=== PATIENT | male | born 1975 | race Caucasian/White ===

== ENCOUNTER 2023-04-25 22:28 | Inpatient (IN) ==
[2023-04-25 23:08] LABS: Basophils # (auto) 0.05 K/uL (0.00-0.20); Basophils % (auto) 0.7 %; Eosinophils # (auto) 0.12 K/uL (0.00-0.50); Eosinophils % (auto) 1.6 %; Hematocrit (blood only) 38.3 % (42.0-52.0); Hemoglobin 12.3 g/dl (14.0-18.0); Immature Granulocytes # (auto) 0.03 K/uL (0.01-0.20); Immature Granulocytes % (auto) 0.4 %; Lymphocytes # (auto) 1.53 K/uL (1.20-3.40); Lymphocytes % (auto) 20.2 %; Mean Corpuscular Hemoglobin 28.2 pg (25.0-34.0); Mean Corpuscular Hgb Conc 32.1 g/dL (32.0-36.0); Mean Corpuscular Volume 87.8 fL (80.0-100.0); Mean Platelet Volume 9.7 fL (9.4-12.4); Monocytes # (auto) 0.36 K/uL (0.11-0.59); Monocytes % (auto) 4.7 %; Neutrophils % (auto) 72.4 %; Platelet Count 427 K/uL (130-400); RDW Coefficient of Variation 13.2 % (11.5-14.5); RDW Standard Deviation 42.6 fL (36.4-46.3); Red Blood Count 4.36 M/uL (4.70-6.10); White Blood Count 7.59 K/ul (4.8-10.8)
[2023-04-25 23:26] LABS: Albumin Globulin Ratio 0.7 (0.9-2); Albumin Level 3.3 gm/dl (3.4-5.0); BUN Creatinine Ratio 12.4 (10-20); Bilirubin,Total 0.3 mg/dl (0.2-1.0); Creatinine Clr Calc Pharmacy 23.8 ml/min; Est GFR (African American) 20.2 ml/min; Est GFR (Non-African American) 17.4 ml/min; Globulin 4.9 gm/dl (2.5-4.0); Magnesium 1.6 mg/dl (1.7-2.4); Potassium 4.1 mmol/L (3.5-5.1); Total Protein 8.2 gm/dl (6.0-8.3)
[2023-04-25] MEDS ORDERED: VANCOMYCIN HCL 1,750 MG in SODIUM CHLORIDE 0.9% 500 ML IV ONE (23:28)
[2023-04-25] MEDS ORDERED: cefTRIAXone SODIUM 2,000 MG/50 ML BAG IV STA (23:28)
[2023-04-25] MEDS ORDERED: VANCOMYCIN CONSULT ACTIVE PRN (23:28)
--- NOTE | 2023-04-25 23:28 | Emergency Department Note ---
Impression & Plan Gangrene of toe of left foot, HEATHER (acute kidney injury), Hypomagnesemia ED Provider Note NAME: VARUN DARBY AGE: 47 SEX: M : 1975 ARRIVES VIA: Walk-In INFORMANT: Patient ED PROVIDER(S): Jasper Blank DO CHIEF COMPLAINT: Left first toe pain HPI: Patient is a 47-year-old male who presents to the ER for left first toe pain. He notes this has been present for several months as initially started as an ulcer and then became black and necrotic. Tonight while he was in the shower he noticed he bumped it and his toenail fell off up with some additional skin. He admits to severe pain. He denies any fevers. No cough or congestion. No chest pain or shortness of breath. No redness streaking up the leg. No other exacerbating or remitting factors. ADDITIONAL HISTORY OBTAINED: Per HPI Chronic Medical/Social Conditions Affecting Care: Per HPI PAST MEDICAL HISTORY:See Below PAST SURGICAL HISTORY:See Below FAMILY HISTORY:See Below SOCIAL HISTORY:See Below HOME MEDICATIONS:See Below ALLERGIES:See Below VITALS:See Below PHYSICAL EXAMINATION: GENERAL: Sitting up in bed, alert, well appearing, well nourished, no distress, non-toxic EYE EXAM: normal conjunctiva. OROPHARYNX: mucous membranes are moist LUNGS: Clear to auscultation. Normal chest wall mechanics HEART: no murmurs, S1 normal and S2 normal ABDOMEN: abdomen soft, non-tender, normo-active bowel sounds, no masses, no rebound or guarding. BACK: Back is symmetrical on inspection and there is no deformity, no midline tenderness, no CVA tenderness. SKIN: no rashes and no bruising UPPER EXTREMITIES: upper extremities are grossly normal. LOWER EXTREMITIES: Left first toe is necrotic and slightly fluctuant tracking down to the base where is a small amount of serosanguineous drainage. Surrounding erythema over the first MTP. NEURO EXAM: Normal sensorium, cranial nerves II-XII grossly intact, normal speech, no gross weakness of arms, no gross weakness of legs. MEDICAL DECISION MAKING: Patient is a 47-year-old diabetic who does not follow with a PCP who presents the ER for left first toe pain. IV was established blood work was obtained. Labs show no significant leukocytosis. Mild anemia at 12. INR unremarkable. BMP with creatinine of 3.8 with no old to compare to. LFTs were unremarkable as well as bilirubin. Magnesium low at 1.6. Troponin negative at 19. Pro-Gabe normal. UA was clean. On exam patient does appear to have gangrene of his left first toe. X-ray does not show any clear osteo-. Patient was covered with IV antibiotics and given IV morphine. Updated bedside discussed with the hospitalist Dr. Bronson for further evaluation management treatment. External Records Reviewed: None Consults/Care Managements Discussions: Per MDM Triage Nursing notes reviewed. Limited review of prior medical records performed Vital Signs: reviewed and remarkable for HTN Differential diagnosis: Cellulitis, abscess, MRSA infection, DVT, necrotizing fasciitis, dermatitis, drug eruption, allergic reaction, as well as other pathologies. ER treatment provided: See below Diagnostics interpreted by me include EKG and cardiac monitoring as listed below: -Cardiac Monitoring: An order was placed for continuous cardiac monitoring. The monitor shows a rate of 80 with sinus rhythm. -ECG: none -Laboratory studies:Interpreted by me as stated above in MDM and shown below. Imaging studies: Xrays: As interpreted by me: X-ray left first toe shows no clear osteo per my read Procedures:none Critical Care: None Past Med/Surg History Social History Smoking Status: Current every day smoker Tobacco Type: Cigarettes Feels Safe at Home: Yes Allergies Allergies Allergy/AdvReac Type Severity Reaction Status Date / Time Iodinated Contrast Media AdvReac Mild SEVERE Verified 04/26/23 02:25 NAUSEA Home Meds Home Medications Medication Instructions Recorded Confirmed No Known Home Medications 04/26/23 04/26/23 Results & Data (ED) Vital Signs Vital Signs - 24 hr 04/25/23 22:38 04/26/23 00:11 04/26/23 00:13 Temperature 36.7 C Temperature Source Temporal Artery Scan Pulse Rate 95 H 82 82 Pulse Rate [Apical] Pulse Rhythm Regular Pulse Rhythm [Apical] Pulse Strength [Apical] Respiratory Rate 18 18 Respiratory Effort / Characteristics Respiratory Depth Normal Respiratory Pattern Blood Pressure 194/111 H Blood Pressure [Left Arm] Blood Pressure Mean 138 Blood Pressure Mean [Left Arm] Blood Pressure Position [Left Arm] Pulse Oximetry 99 100 Oxygen Delivery Method Room Air Room Air Sepsis Recent Fever Within 48 Hours No Sepsis New/Unexplained Change in Mental Status No Sepsis Action Taken by Nursing No Action Required 04/26/23 01:00 Temperature Temperature Source Pulse Rate Pulse Rate [Apical] 78 Pulse Rhythm Pulse Rhythm [Apical] Regular Pulse Strength [Apical] Normal Respiratory Rate 18 Respiratory Effort / Characteristics Non-Labored Spontaneous Respiratory Depth Normal Respiratory Pattern Regular Blood Pressure Blood Pressure [Left Arm] 167/96 H Blood Pressure Mean Blood Pressure Mean [Left Arm] 119 Blood Pressure Position [Left Arm] Semi-fowlers Pulse Oximetry 99 Oxygen Delivery Method Room Air Sepsis Recent Fever Within 48 Hours Sepsis New/Unexplained Change in Mental Status Sepsis Action Taken by Nursing Laboratory Data 04/25/23 22:50 04/25/23 22:50 Lab Results 04/25/23 04/25/23 04/26/23 Range/Units 22:50 23:58 00:05 WBC 7.59 (4.8-10.8) K/ul RBC 4.36 L (4.70-6.10) M/uL Hgb 12.3 L (14.0-18.0) g/dl Hct 38.3 L (42.0-52.0) % MCV 87.8 (80.0-100.0) fL MCH 28.2 (25.0-34.0) pg MCHC 32.1 (32.0-36.0) g/dL RDW Std Deviation 42.6 (36.4-46.3) fL RDW Coeff of Duran 13.2 (11.5-14.5) % Plt Count 427 H (130-400) K/uL MPV 9.7 (9.4-12.4) fL Immature Gran % (Auto) 0.4 % Neut % (Auto) 72.4 % Lymph % (Auto) 20.2 % Allen % (Auto) 4.7 % Eos % (Auto) 1.6 % Baso % (Auto) 0.7 % Neut # (Auto) 5.50 (1.40-6.50) K/uL Lymph # (Auto) 1.53 (1.20-3.40) K/uL Allen # (Auto) 0.36 (0.11-0.59) K/uL Eos # (Auto) 0.12 (0.00-0.50) K/uL Baso # (Auto) 0.05 (0.00-0.20) K/uL Immature Gran # (Auto) 0.03 (0.01-0.20) K/uL PT 11.4 (9.0-12.0) Seconds INR 1.0 (0.9-1.1) APTT 27.1 (21.0-31.0) Seconds PTT Ratio 1.0 Sodium 137 (136-145) mmol/L Potassium 4.1 (3.5-5.1) mmol/L Chloride 107 (98-107) mmol/L Carbon Dioxide 21 (21-32) mmol/L Anion Gap 9 (3-11) BUN 48 H (6-23) mg/dl Creatinine 3.88 H (0.6-1.4) mg/dl Est Cr Clr Drug Dosing 23.8 ml/min Est GFR ( Amer) 20.2 ml/min Est GFR (Non-Af Amer) 17.4 ml/min BUN/Creatinine Ratio 12.4 (10-20) Glucose 95 (70-99(Fasting)) mg/dl Lactate 1.9 (0.4-2.0) mmol/L Calcium 9.0 (8.6-10.3) mg/dl Magnesium 1.6 L (1.7-2.4) mg/dl Total Bilirubin 0.3 (0.2-1.0) mg/dl AST 26 (13-39) U/L ALT 20 (7-52) U/L Alkaline Phosphatase 143 H (34-104) U/L Troponin I High Sens 19.5 (0-20) pg/ml Total Protein 8.2 (6.0-8.3) gm/dl Albumin 3.3 L (3.4-5.0) gm/dl Globulin 4.9 H (2.5-4.0) gm/dl Albumin/Globulin Ratio 0.7 L (0.9-2) Procalcitonin 0.30 (0-0.5) ng/ml Urine Color Yellow Urine Appearance Clear (Clear) Urine pH 5.0 (4.5-7.5) Ur Specific [place] 1.015 (1.000-1.030) Urine Protein 3+ H (Negative) Urine Glucose (UA) 1+ H (Negative) Urine Ketones Negative (Negative) Urine Blood 1+ H (Negative) Urine Nitrite Negative (Negative) Urine Bilirubin Negative (Negative) Urine Urobilinogen Negative (Negative) Ur Leukocyte Esterase Negative (Negative) Urine WBC (Auto) 1-5 (0-5) /hpf Urine RBC (Auto) 0-4 (0-4) /hpf U Hyaline Cast (Auto) 1-5 (0-5) /lpf U Epithel Cells (Auto) 0-5 (0-5) /lpf Urine Bacteria (Auto) Negative (Negative) Administered Medications Discontinued Medications Hydromorphone HCl (Hydromorphone Inj 1 Mg/Ml Syringe) 1 mg IV NOW STA Stop: 04/26/23 02:18 Last Admin: 04/26/23 02:30 Dose: 1 mg Documented By: CLAU Ceftriaxone Sodium (Rocephin) 2,000 mg in 50 mls @ 100 mls/hr IV NOW STA Stop: 04/25/23 23:57 Last Infusion: 04/26/23 00:45 Dose: Infused Documented By: Admin: 04/26/23 00:16 Dose: 100 mls/hr Documented By: CLAU Vancomycin HCl 1,750 mg/ (Sodium Chloride) 535 mls @ 200 mls/hr IV NOW ONE Stop: 04/26/23 02:08 Last Admin: 04/26/23 00:45 Dose: 200 mls/hr Documented By: CLAU Sodium Chloride (Nss) 1,000 mls @ 999 mls/hr IV .Q1H1M ONE Stop: 04/26/23 01:02 Last Infusion: 04/26/23 01:25 Dose: Infused Documented By: Admin: 04/26/23 00:15 Dose: 999 mls/hr Documented By: CLAU Morphine Sulfate (Morphine Sulfate 4 Mg/Ml 1 Ml Carp\Vial) 4 mg IV NOW STA Stop: 04/26/23 00:23 Last Admin: 04/26/23 00:25 Dose: 4 mg Documented By: CLAU Discharge Plan Visit Data Chief Complaint: Toe Injury/Pain Stated Complaint: LT TOE PAIN, INFECTION ED Provider: Jasper Blank Discharge Problem: Gangrene of toe of left foot, HEATHER (acute kidney injury), Hypomagnesemia Forms Stand Alone Forms: Doctor on Demand Prescriptions Prescriptions: No Action No Known Home Medications Referrals Referrals: PCP,NO [Primary Care Provider] -
[2023-04-25 23:32] LABS: Troponin I High Sensitivity 19.5 pg/ml (0-20)
[2023-04-25 23:37] LABS: Partial Thromboplastin Time 27.1 Seconds (21.0-31.0); Prothrombin Time 11.4 Seconds (9.0-12.0)
[2023-04-26] MEDS ORDERED: SODIUM CHLORIDE 0.9% 1,000 ML IV ONE (00:02)
[2023-04-26] MEDS ORDERED: MoRPHine SULFATE 4 MG/ML 1 ML CARP\\VIAL IV STA (00:22)
[2023-04-26 01:24] LABS: Appearance Urine Clear (Clear); Bacteria Urine Automated Negative (Negative); Bilirubin Urine Negative (Negative); Blood Urine 1+ (Negative); Color Urine Yellow; Epithelial Cell Urine Auto 0-5 /lpf (0-5); Glucose Urine UA 1+ (Negative); Ketones Urine Negative (Negative); Leukocyte Esterase Urine Negative (Negative); Nitrite Urine Negative (Negative); Protein Urine 3+ (Negative); RBC Urine Automated 0-4 /hpf (0-4); Specific Gravity Urine 1.015 (1.000-1.030); Urobilinogen Urine Negative (Negative)
--- NOTE | 2023-04-26 01:53 | History & Physical Report ---
Date of Service April 26, 2023 Assessment & Plan (1) Gangrene of toe of left foot: Plan: 47-year-old male past med significant for high blood pressure, diabetes, high cholesterol as per patient and not taking medication since 2019 comes because of left big toe infection which seems gangrenous. Patient says 2 months ago the infection started left big toe with callus and progressive got worse. Gangrene of toe of left foot States callus of left big toe got infected since last 2 months and progressively got worse Not seeing doctors for long time Placed on IV Vanco and Zosyn IV fluids We will follow arterial ultrasound of lower extremities IV Dilaudid as needed N.p.o. Consult Ortho Hypertensive urgency States has history of hypertension and not take any medications We will place him on IV labetalol as needed for now We will monitor HEATHER versus chronic kidney disease Creatinine of 3.8 Avoid nephrotoxic agents Getting gentle fluids Nephrology consult Diabetes Currently not on medications Insulin sliding scale We will follow blood sugars and HbA1c levels History of hyperlipidemia We will follow lipid profile DVT prophylaxis SCDs for now Disposition Med/telemetry Full code History of Present Illness Chief Complaint: Left big toe infection gangrenous Primary Care Provider: NO PCP 47-year-old male past med history significant for high blood pressure, diabetes, high cholesterol as per patient and not taking medication since 2019 comes because of left big toe infection which seems gangrenous. Patient says 2 months ago the infection started in left big toe with callus and progressive got worse. Is in a lot of pain. But he states he deals with lot of pain from his back p ain and his neuropathy is in his lower extremity. Patient states he used to take lot of pain medications before for his back pain and used to be on a lot of pills but he stopped going to doctors from 2019 and stopped taking all the medications. Denies any fevers. Not able to ambulate because of pain for last few days. Denies any headache. Vision is okay. No runny nose or sore throat. No difficulty swallowing. No nausea or vomiting. No chest pain or shortness of breath. No abdominal pain. Normal bowel and bladder movements. Denies any bloody stools or hematuria. Past med history. As mentioned above Past surgical history. Facial reconstruction surgery, dental surgery and back surgery Social history. Smokes 1 pack a day for for about 30 years. Stopped drinking alcohol 2 years ago. Family history. Mother had diabetes. Paternal grandfather heart disease and colon cancer. Brother had esophageal cancer Allergies Allergy/AdvReac Type Severity Reaction Status Date / Time Iodinated Contrast Media AdvReac Mild SEVERE Verified 04/26/23 02:25 NAUSEA Home Medications Medication Instructions Recorded Confirmed Type No Known Home Medications 04/26/23 04/26/23 History Past Med/Surg History Social History Smoking Status: Current every day smoker Tobacco Type: Cigarettes Feels Safe at Home: Yes Review of Systems Review of Systems: All systems reviewed & are unremarkable except as noted in HPI & below Physical Exam Physical Exam: General- Not in distress Head- atraumatic Eyes- PERRL. ENT- oropharynx clear Neck- supple, no JVD. Lungs- clear to auscultation no wheezing or crackles. Heart- regular rhythm; no murmur, no gallop. Abdomen- normal bowel sounds, soft, nontender, no distension. Extremities- Left Big toe gangrenous. Neuro- alert, oriented x 3; PERRL, no facial palsy; no dysarthria; moves extremities. Results & Data Results & Data Vital Signs (Past 12 Hours) Vital Signs Temp Pulse Pulse Resp BP BP Pulse Ox 04/26/23 01:00 78 18 167/96 H 99 04/26/23 00:13 82 18 100 04/26/23 00:11 82 04/25/23 22:38 36.7 C 95 H 18 194/111 H 99 O2 Del Method 04/26/23 01:00 Room Air 04/26/23 00:13 Room Air 04/26/23 00:11 04/25/23 22:38 Room Air Diagnostic Findings Laboratory Results WBC 7.59 K/ul (4.8-10.8) 04/25/23 22:50 RBC 4.36 M/uL (4.70-6.10) L 04/25/23 22:50 Hgb 12.3 g/dl (14.0-18.0) L 04/25/23 22:50 Hct 38.3 % (42.0-52.0) L 04/25/23 22:50 MCV 87.8 fL (80.0-100.0) 04/25/23 22:50 MCH 28.2 pg (25.0-34.0) 04/25/23 22:50 MCHC 32.1 g/dL (32.0-36.0) 04/25/23 22:50 RDW Std Deviation 42.6 fL (36.4-46.3) 04/25/23 22:50 RDW Coeff of Duran 13.2 % (11.5-14.5) 04/25/23 22:50 Plt Count 427 K/uL (130-400) H 04/25/23 22:50 MPV 9.7 fL (9.4-12.4) 04/25/23 22:50 Immature Gran % (Auto) 0.4 % 04/25/23 22:50 Neut % (Auto) 72.4 % 04/25/23 22:50 Lymph % (Auto) 20.2 % 04/25/23 22:50 Rowan % (Auto) 4.7 % 04/25/23 22:50 Eos % (Auto) 1.6 % 04/25/23 22:50 Baso % (Auto) 0.7 % 04/25/23 22:50 Neut # (Auto) 5.50 K/uL (1.40-6.50) 04/25/23 22:50 Lymph # (Auto) 1.53 K/uL (1.20-3.40) 04/25/23 22:50 Rowan # (Auto) 0.36 K/uL (0.11-0.59) 04/25/23 22:50 Eos # (Auto) 0.12 K/uL (0.00-0.50) 04/25/23 22:50 Baso # (Auto) 0.05 K/uL (0.00-0.20) 04/25/23 22:50 Immature Gran # (Auto) 0.03 K/uL (0.01-0.20) 04/25/23 22:50 PT 11.4 Seconds (9.0-12.0) 04/25/23 22:50 INR 1.0 (0.9-1.1) 04/25/23 22:50 APTT 27.1 Seconds (21.0-31.0) 04/25/23 22:50 PTT Ratio 1.0 04/25/23 22:50 Sodium 137 mmol/L (136-145) 04/25/23 22:50 Potassium 4.1 mmol/L (3.5-5.1) 04/25/23 22:50 Chloride 107 mmol/L (98-107) 04/25/23 22:50 Carbon Dioxide 21 mmol/L (21-32) 04/25/23 22:50 Anion Gap 9 (3-11) 04/25/23 22:50 BUN 48 mg/dl (6-23) H 04/25/23 22:50 Creatinine 3.88 mg/dl (0.6-1.4) H 04/25/23 22:50 Est Cr Clr Drug Dosing 23.8 ml/min 04/25/23 22:50 Est GFR ( Amer) 20.2 ml/min 04/25/23 22:50 Est GFR (Non-Af Amer) 17.4 ml/min 04/25/23 22:50 BUN/Creatinine Ratio 12.4 (10-20) 04/25/23 22:50 Glucose 95 mg/dl (70-99(Fasting)) 04/25/23 22:50 Lactate 1.9 mmol/L (0.4-2.0) 04/25/23 23:58 Calcium 9.0 mg/dl (8.6-10.3) 04/25/23 22:50 Magnesium 1.6 mg/dl (1.7-2.4) L 04/25/23 22:50 Total Bilirubin 0.3 mg/dl (0.2-1.0) 04/25/23 22:50 AST 26 U/L (13-39) 04/25/23 22:50 ALT 20 U/L (7-52) 04/25/23 22:50 Alkaline Phosphatase 143 U/L (34-104) H 04/25/23 22:50 Troponin I High Sens 19.5 pg/ml (0-20) 04/25/23 22:50 Total Protein 8.2 gm/dl (6.0-8.3) 04/25/23 22:50 Albumin 3.3 gm/dl (3.4-5.0) L 04/25/23 22:50 Globulin 4.9 gm/dl (2.5-4.0) H 04/25/23 22:50 Albumin/Globulin Ratio 0.7 (0.9-2) L 04/25/23 22:50 Procalcitonin 0.30 ng/ml (0-0.5) 04/25/23 22:50 Urine Color Yellow 04/26/23 00:05 Urine Appearance Clear (Clear) 04/26/23 00:05 Urine pH 5.0 (4.5-7.5) 04/26/23 00:05 Ur Specific [place] 1.015 (1.000-1.030) 04/26/23 00:05 Urine Protein 3+ (Negative) H 04/26/23 00:05 Urine Glucose (UA) 1+ (Negative) H 04/26/23 00:05 Urine Ketones Negative (Negative) 04/26/23 00:05 Urine Blood 1+ (Negative) H 04/26/23 00:05 Urine Nitrite Negative (Negative) 04/26/23 00:05 Urine Bilirubin Negative (Negative) 04/26/23 00:05 Urine Urobilinogen Negative (Negative) 04/26/23 00:05 Ur Leukocyte Esterase Negative (Negative) 04/26/23 00:05 Urine WBC (Auto) 1-5 /hpf (0-5) 04/26/23 00:05 Urine RBC (Auto) 0-4 /hpf (0-4) 04/26/23 00:05 U Hyaline Cast (Auto) 1-5 /lpf (0-5) 04/26/23 00:05 U Epithel Cells (Auto) 0-5 /lpf (0-5) 04/26/23 00:05 Urine Bacteria (Auto) Negative (Negative) 04/26/23 00:05 ECG Additional Comments: ECG. Normal sinus rhythm rate of 90. No significant change was found Code Status & VTE Plan VTE Prophylaxis Plan VTE Prophylaxis will be ordered: Yes
[2023-04-26] MEDS ORDERED: HYDROmorphone INJ 1 MG/ML SYRINGE IV STA ×2 (02:17→22:45)
[2023-04-26] MEDS ORDERED: NITROGLYCERIN SL 0.4 MG/TAB TAB SL PRN (03:52)
[2023-04-26] MEDS ORDERED: POLYETHYLENE (MIRALAX) 17 GM PACK PO PRN (03:52)
[2023-04-26] MEDS ORDERED: DEXTROSE 50% 50 ML SYRINGE IV PRN (03:52)
[2023-04-26] MEDS ORDERED: CARBOHYDRATES FOR HYPOGLYCEMIA PO PRN (03:52)
[2023-04-26] MEDS ORDERED: GLUCOSE 10 TAB/TUBE PO PRN (03:52)
[2023-04-26] MEDS ORDERED: LABETALOL HCL IV 5 MG/ML 20ML IV PRN ×2 (03:52→15:38)
[2023-04-26] MEDS ORDERED: GLUCAGON FOR INJ 1 MG VIAL SQ PRN (03:52)
[2023-04-26] MEDS ORDERED: GLUCOSE 40% GEL 15 GM TUBE PO PRN (03:52)
[2023-04-26] MEDS ORDERED: ACETAMINOPHEN 325 MG TAB PO PRN (03:52)
[2023-04-26] MEDS: SODIUM CHLORIDE 0.9% 1,000 ML IV SCH ×2 (04:23→20:09)
[2023-04-26 05:09] LABS: Basophils # (auto) 0.05 K/uL (0.00-0.20); Basophils % (auto) 0.7 %; Eosinophils # (auto) 0.15 K/uL (0.00-0.50); Eosinophils % (auto) 2.1 %; Hematocrit (blood only) 30.5 % (42.0-52.0); Immature Granulocytes # (auto) 0.03 K/uL (0.01-0.20); Immature Granulocytes % (auto) 0.4 %; Lymphocytes % (auto) 25.1 %; Mean Corpuscular Hemoglobin 28.2 pg (25.0-34.0); Mean Corpuscular Hgb Conc 32.8 g/dL (32.0-36.0); Mean Corpuscular Volume 86.2 fL (80.0-100.0); Mean Platelet Volume 9.6 fL (9.4-12.4); Monocytes # (auto) 0.44 K/uL (0.11-0.59); Monocytes % (auto) 6.1 %; Neutrophils # (auto) 4.69 K/uL (1.40-6.50); Neutrophils % (auto) 65.6 %; Platelet Count 308 K/uL (130-400); RDW Coefficient of Variation 13.1 % (11.5-14.5); RDW Standard Deviation 41.4 fL (36.4-46.3); Red Blood Count 3.54 M/uL (4.70-6.10); White Blood Count 7.16 K/ul (4.8-10.8)
[2023-04-26 05:19] LABS: BUN Creatinine Ratio 13.1 (10-20); Calcium 8.1 mg/dl (8.6-10.3); Chol HDL Ratio 7.1 (0-5); Creatinine Clr Calc Pharmacy 26.4 ml/min; Est GFR (African American) 22.9 ml/min; Est GFR (Non-African American) 19.8 ml/min; Magnesium 1.4 mg/dl (1.7-2.4); Potassium 3.8 mmol/L (3.5-5.1)
[2023-04-26] MEDS: INSULIN ASPART PER UNIT CHARGE SC SCH ×4 (06:24→23:43)
--- NOTE | 2023-04-26 06:51 | Ultrasound Report ---
US arterial duplex LE BI HISTORY: 47 years-old Male PVD. diabetic foot infection peripheral arterial disease with right lower extremity pain COMPARISON: None TECHNIQUE: Multiple real-time sonographic images of the bilateral lower arterial structures were obta ined assessing grayscale appearance, color and spectral flow FINDINGS: Right: Diffuse atherosclerotic plaque limits the study. No elevated peak systolic velocities to suggest high -grade stenosis. No arterial occlusion. Mostly triphasic waveforms throughout. LEFT: Diffuse atherosclerotic plaque limits the study. Elevated peak systolic velocities within the peronea l artery measuring up to 226 cm/s. Additional elevated peak systolic velocities in the posterior tibi al artery measure up to 338 cm/s and within the proximal peroneal artery measure up to 220 cm/s. Elev ated peak systolic velocities in the mid anterior tibial artery measure up to 466 cm/s. Monophasic wa veforms within the left lower leg with areas of spectral broadening. Blunted waveforms are seen most prominently within the mid anterior tibial artery. IMPRESSION: 1. No arterial occlusion identified. 2. Diffuse atherosclerosis with elevated peak systolic velocities and monophasic waveforms within the left lower leg compatible with multifocal areas of high-grade stenoses. 3. Mostly triphasic waveforms throughout the right lower extremity. ACT 112: Negative or not required by law. The above report was generated using voice recognition software. It may contain grammatical, syntax o r spelling errors. Electronically signed by: Amanuel Purvis M.D. 04/26/2023 6:49 AM
--- NOTE | 2023-04-26 06:55 | XRay Report ---
XR toe(s) LT min 2V HISTORY: 47 years-old Male osteo acute left foot pain with osteomyelitis COMPARISON: None TECHNIQUE: 3 views of the left foot FINDINGS: Diffuse soft tissue swelling. Soft tissue gas of the great toe with medial cutaneous ulcer, 1.6 cm. O sseous erosion with pathologic intra-articular fracturing is noted involving the medial base of the f irst distal phalanx without significant displacement. IMPRESSION: Soft tissue ulcer with deep tissue gas which may be secondary to direct indication with t he ulcer versus necrotizing fasciitis/gas gangrene. There is associated osteomyelitis/osteonecrosis o f the first distal phalanx with pathologic intra-articular fracturing. ACT 112: Negative or not required by law. The above report was generated using voice recognition software. It may contain grammatical, syntax o r spelling errors. Electronically signed by: Amanuel Purvis M.D. 04/26/2023 6:54 AM
[2023-04-26 07:34] LABS: Estimated Average Glucose 169 mg/dl; Hemoglobin A1C 7.5 % (4.5-5.6)
[2023-04-26] MEDS ORDERED: MAGNESIUM SULFATE / D5W 1 GM/100 ML BAG IV ONE (09:30)
--- NOTE | 2023-04-26 09:52 | Electrocardiogram Report ---
Test Reason : Blood Pressure : / mmHG Vent. Rate : 090 BPM Atrial Rate : 090 BPM P-R Int : 134 ms QRS Dur : 078 ms QT Int : 332 ms P-R-T Axes : 083 066 071 degrees QTc Int : 406 ms Normal sinus rhythm Normal ECG When compared with ECG of 28-JAN-2011 15:50, No significant change was found Confirmed by Krish Lopez ([id number]) on 04/26/2023 9:52:01 AM Referred By: REFERRED SELF Confirmed By:Krish Lopez
--- NOTE | 2023-04-26 10:24 | Pharmacy Report ---
Pharmacy PK ABX Note - Date of Service April 26, 2023 - Assessment and Plan Assessment 47 year old M receiving vancomycin for treatment of toe gangrene. Blood cultures pending. (+) HEATHER -- SCr 3.88-->3.5mg/dL. Day #1 of antimicrobial therapy. Plan Vancomycin * Loading dose: 1750 mg IV x 1 * Given HEATHER, will dose vancomycin by levels for now. * Random level this AM, 18.7mcg/mL indicating safe to re-dose. Vanc 1gm IV X 1 with repeat level in AM. Pharmacy will continue to follow and will adjust dose/frequency as necessary. Thank you.
[2023-04-26] MEDS ORDERED: PIPER/TAZO 4.5g in D5W MINI-B 100 ML IV ONE (11:00)
[2023-04-26] MEDS ORDERED: VANCOMYCIN HCL 1,000 MG in SODIUM CHLORIDE 0.9% 250 ML IV ONE (11:00)
[2023-04-26] MEDS ORDERED: PROPOFOL IV EMULSION 10 MG/ML 20 ML VIAL IV ONE ×2 (15:11→15:12)
[2023-04-26] MEDS ORDERED: ONDANSETRON INJ 2 MG/ML 2 ML VIAL ONE (15:12)
[2023-04-26] MEDS ORDERED: MIDAZOLAM HCL 1 MG/ML 2ML VIAL ONE (15:12)
[2023-04-26] MEDS ORDERED: LIDOCAINE 2% 2 ML VIAL/AMP(20MG/ML) INFIL ONE (15:12)
[2023-04-26] MEDS ORDERED: fentaNYL citrate PF 100 MCG/2 ML VIAL ONE (15:12)
[2023-04-26] MEDS ORDERED: BUPIVACAINE 0.5 % 5 MG/1 ML MPF 30ML VIAL ONE (15:15)
--- NOTE | 2023-04-26 15:33 | Anesthesiology Consultation ---
Date of Service April 26, 2023 Assessment & Plan (1) Encounter for pre-operative examination: Chart Review Chart Review: Acceptable Risk for Surgery History Surgery Operation Date: 04/26/23 12:00 Proposed Procedures p Left Great Toe Amputation - Jesse Silva DPM, MS Height/Weight Height: 5 ft 9 in Weight: 84.4 kg Allergies Allergy/AdvReac Type Severity Reaction Status Date / Time Iodinated Contrast Media AdvReac Mild SEVERE Verified 04/26/23 02:25 NAUSEA Medications Home Medications Medication Instructions Recorded Confirmed Last Taken No Known Home Medications 04/26/23 04/26/23 Unknown Active Medications Generic Name Dose Route Start Last Admin Trade Name Freq PRN Reason Stop Dose Admin Sodium Chloride 1,000 mls @ 80 mls/hr 04/26/23 03:52 04/26/23 15:12 Nss IV 05/26/23 03:51 Infused .[id number] ROBERTO CARLOS Infusion Insulin Aspart 0 units 04/26/23 06:00 04/26/23 12:15 Insulin Aspart Per Unit Charge SC 05/26/23 05:59 Not Given Q6 ROBERTO CARLOS NPO Date Last Intake of Fluids: 04/25/23 Time Last Intake of Fluids: 22:00 Date Last Intake of Solids: 04/25/23 Time Last Intake of Solids: 22:00 Past Medical History Medical History (Updated 04/26/23 @ 15:38 by Alexsander Alcantara MD) Anemia Hypertension Untreated Diabetes Untreated HEATHER (acute kidney injury) Gangrene of toe of left foot Exercise / Class Metabolic Activity II 4-5 Yardwork/Stairs/Walk up hill Past Surgical History Surgical History (Updated 04/26/23 @ 15:36 by Alexsander Alcantara MD) Hx of facial fracture repair History of back surgery Past Anesthesia History No Hx of Anesthesia Complications History of PONV No Hx of PONV and No Hx of Motion Sickness Social History Smoking Status: Current every day smoker Hx Alcohol Use: Yes Alcohol type: beer alcohol intake frequency: a few times a month Hx Substance Use: No Physical Exam Vital Signs Last Vital Signs Temp 37 C 04/26/23 15:00 Pulse 72 04/26/23 15:00 Resp 18 04/26/23 15:00 BP 154/92 H 04/26/23 15:00 Pulse Ox 100 04/26/23 15:00 O2 Del Method Room Air 04/26/23 15:00 Testing Laboratory Results 04/26/23 04:46 04/26/23 04:46 PT 11.4 Seconds (9.0-12.0) 04/25/23 22:50 INR 1.0 (0.9-1.1) 04/25/23 22:50 APTT 27.1 Seconds (21.0-31.0) 04/25/23 22:50 Hemoglobin A1c 7.5 % (4.5-5.6) H 04/26/23 04:46 Urine Color Yellow 04/26/23 00:05 Urine Appearance Clear (Clear) 04/26/23 00:05 Urine pH 5.0 (4.5-7.5) 04/26/23 00:05 Ur Specific [place] 1.015 (1.000-1.030) 04/26/23 00:05 Urine Protein 3+ (Negative) H 04/26/23 00:05 Urine Glucose (UA) 1+ (Negative) H 04/26/23 00:05 Urine Ketones Negative (Negative) 04/26/23 00:05 Urine Nitrite Negative (Negative) 04/26/23 00:05 Ur Leukocyte Esterase Negative (Negative) 04/26/23 00:05 Urine WBC (Auto) 1-5 /hpf (0-5) 04/26/23 00:05 Urine RBC (Auto) 0-4 /hpf (0-4) 04/26/23 00:05 U Hyaline Cast (Auto) 1-5 /lpf (0-5) 04/26/23 00:05 U Epithel Cells (Auto) 0-5 /lpf (0-5) 04/26/23 00:05 Urine Bacteria (Auto) Negative (Negative) 04/26/23 00:05 04/26/23 04/26/23 04/26/23 11:52 06:21 04:19 POC Glucose 127 H 134 H 150 H Electrocardiogram Date: 04/25/23 Findings: + NSR @ (90)
--- NOTE | 2023-04-26 15:37 | History & Physical Bridge Note ---
Date of Service April 26, 2023 History & Physical Bridge Note I have examined the patient, reviewed the History & Physical and in the interval since the performance of the History & Physical I have noted the following changes of clinical significance: no changes noted
[2023-04-26] MEDS ORDERED: ONDANSETRON INJ 2 MG/ML 2 ML VIAL IV PRN (15:38)
[2023-04-26] MEDS ORDERED: ATROPINE SULFATE 0.1 MG/ML 10ML SYR IV PRN (15:38)
--- NOTE | 2023-04-26 15:41 | Orthopedic Consultation ---
Date of Consultation April 26, 2023 Assessment & Plan (1) Gangrene of toe of left foot: Patient seen, evaluated, and treated. Reviewed physical exam with Patient showing left gangrenous great toe. Reviewed X-rays and X-ray findings consistent with gas gangrene. Discussed amputation of left great toe in detail. All questions answered. Patient would like to proceed with surgical care. (2) Diabetes: History of Present Illness Attending Physician: Jovan Perkins MD History of Present Illness Patient is a 47-year-old male seen in [facility] Emergency Department for a left caryn grenous toe. Patient has a past med history significant for high blood pressure, diabetes, high cholesterol as per patient and not taking medication since 2019. Patient presented to [facility] ED because of left big toe infection. X- rays show +OM and gas gangrene. Patient states 2 months ago the infection started in left big toe progressively worsened. Allergies Allergy/AdvReac Type Severity Reaction Status Date / Time Iodinated Contrast Media AdvReac Mild SEVERE Verified 04/26/23 02:25 NAUSEA Home Medications Medication Instructions Recorded Confirmed Type No Known Home Medications 04/26/23 04/26/23 History Patient History Medical History Hypertension Untreated Diabetes Untreated HEATHER (acute kidney injury) Gangrene of toe of left foot Surgical History Hx of facial fracture repair History of back surgery Social History Smoking Status: Current every day smoker Tobacco Type: Cigarettes Hx Alcohol Use: Yes Alcohol type: beer Hx Substance Use: No Communication Ability: Effective Beliefs That Will Affect Care: None Current Living Situation: Alone Feels Safe at Home: Yes Safety Concerns: Feels Safe At This Time Review of Systems Review of Systems: All systems reviewed & are unremarkable except as noted in HPI & below Physical Exam Constitutional: well developed, well nourished, cooperative and comfortable Eyes: normal visual adair by confrontation Neck: normal visual inspection Respiratory: normal respiratory effort Cardiovascular: Rate/Rhythm: regular rate and regular rhythm Heart Sounds: normal S1 and normal S2 Vessels: posterior tibial pulses present and dorsalis pedis pulses present Skin: + wound (Left great toe gangrene) Neurologic: moves all extremities Psychiatric: Orientation: alert and oriented x 3 Results & Data Vital Signs (Past 12 Hours) Vital Signs Temp Pulse Pulse Resp BP Pulse Ox O2 Del Method 04/26/23 15:00 37 C 72 18 154/92 H 100 Room Air 04/26/23 11:55 36.9 C 70 16 159/85 H 98 Room Air 04/26/23 07:53 70 18 161/90 H 98 Room Air 04/26/23 06:55 69 04/26/23 06:28 75 18 98 Room Air 04/26/23 06:08 73 18 125/89 97 Room Air Diagnostic Findings [place], [place] [phone] XRay Report Patient: VARUN DARBY Admit Date: 04/26/23 MR#: [id number] Address1: [address] [facility] Acct ID:[id number] Address2: Date: [address] [facility] Zip: [place] [address] Age: 47 Location: [facility] Sex: M Room/Bed: [place] [address] Att Phy: David Montiel MD Diagnosis: TOE INFECTION, HEATHER, HYPERTENSIVE URGENCY Ofelia Phy: PCP,NO Service Date: 04/25/23 Fam Phy: Interpreting Phy: Amanuel PurvisAdmit Phy: Ike Avila MD Ordering Phy: Jasper Blank DO cc: ~ XR toe(s) LT min 2V HISTORY: 47 years-old Male osteo acute left foot pain with osteomyelitis COMPARISON: None TECHNIQUE: 3 views of the left foot FINDINGS: Diffuse soft tissue swelling. Soft tissue gas of the great toe with medial cutaneous ulcer, 1.6 cm. Osseous erosion with pathologic intra-articular fracturing is noted involving the medial base of the first distal phalanx without significant displacement. IMPRESSION: Soft tissue ulcer with deep tissue gas which may be secondary to direct indication with the ulcer versus necrotizing fasciitis/gas gangrene. There is associated osteomyelitis/osteonecrosis of the first distal phalanx with pathologic intra-articular fracturing. ACT 112: Negative or not required by law. The above report was generated using voice recognition software. It may contain grammatical, syntax or spelling errors. Electronically signed by: Amanuel Purvis M.D. 04/26/2023 6:54 AM Dictated: 04/26/2352 Transcribed: 04/26/2352 [place], [place] [phone] Ultrasound Report Patient: VARUN DARBY Admit Date: 04/26/23 MR#: [id number] Address1: [address] Acct ID:[id number] Address2: Date: [address] [facility] Zip: [place] [address] Age: 47 Location: [facility] Sex: M Room/Bed: [place] [id number]- Att Phy: David Montiel MD Diagnosis: TOE INFECTION, HEATHER, HYPERTENSIVE URGENCY Ofelia Phy: PCP,NO Service Date: 04/26/23 Fam Phy: Interpreting Phy: Amanuel PurvisAdmit Phy: Ike Avila MD Ordering Phy: Ike Avila MD cc: ~ US arterial duplex LE BI HISTORY: 47 years-old Male PVD. diabetic foot infection peripheral arterial disease with right lower extremity pain COMPARISON: None TECHNIQUE: Multiple real-time sonographic images of the bilateral lower arterial structures were obtained assessing grayscale appearance, color and spectral flow FINDINGS: Right: Diffuse atherosclerotic plaque limits the study. No elevated peak systolic velocities to suggest high-grade stenosis. No arterial occlusion. Mostly triphasic waveforms throughout. LEFT: Diffuse atherosclerotic plaque limits the study. Elevated peak systolic velocities within the peroneal artery measuring up to 226 cm/s. Additional elevated peak systolic velocities in the posterior tibial artery measure up to 338 cm/s and within the proximal peroneal artery measure up to 220 cm/s. Elevated peak systolic velocities in the mid anterior tibial artery measure up to 466 cm/s. Monophasic waveforms within the left lower leg with areas of spectral broadening. Blunted waveforms are seen most prominently within the mid anterior tibial artery. IMPRESSION: 1. No arterial occlusion identified. 2. Diffuse atherosclerosis with elevated peak systolic velocities and monophasic waveforms within the left lower leg compatible with multifocal areas of high- grade stenoses. 3. Mostly triphasic waveforms throughout the right lower extremity. ACT 112: Negative or not required by law. The above report was generated using voice recognition software. It may contain grammatical, syntax or spelling errors. Electronically signed by: Amanuel Purvis M.D. 04/26/2023 6:49 AM Dictated: 04/26/2345 Transcribed: 04/26/2345
[2023-04-26] MEDS ORDERED: PIPER/TAZO 4.5g in D5W MINI-B 100 ML IV SCH (16:00)
--- NOTE | 2023-04-26 16:34 | Post Operative Brief Note ---
Immediate Post Op Note v1 Date of Surgery April 26, 2023 Pre & Post Diagnosis Operation Date: 04/26/23 12:00 Pre-Op Diagnosis: Gangrene of toe of left foot. Post-Op Diagnosis: Gangrene of toe of left foot. I identified the patient and participated in the time-out.: Yes Procedure Operation Date: 04/26/23 12:00 Actual Procedures p Left Great Toe Amputation(Left) - Jesse Silva DPM, MS Surgeon Jesse Silva DPM, MS Divorce Attorney NOne Estimated Blood Loss 5 Findings Consistent with Post-Op Diagnosis Gas gangrene Left hallux Specimens Left hallux - pathology Left hallux distal phalanx - microbiology
--- NOTE | 2023-04-26 16:42 | Operative Report ---
Post Operative Report Pre & Post Diagnosis Operation Date: 04/26/23 12:00 Pre-Op Diagnosis: Gangrene of toe of left foot. Post-Op Diagnosis: Gangrene of toe of left foot. I identified the patient and participated in the time-out.: Yes Procedure Operation Date: 04/26/23 12:00 Actual Procedures p Left Great Toe Amputation(Left) - Jesse Silva DPM, MS Surgeon Jesse Silva DPM, MS Barrel Straightener [employer]One Estimated Blood Loss 5 Findings Consistent with Post-Op Diagnosis Left gangrenous hallux Specimens left hallux - pathology Left hallux distal phalanx - microbiology Description of Procedure History of present illness: Patient is a 47 year old male who is seen for treatment of necrotic Left great toe. X-rays positive for gas gangrene. Patient notes a left foot ulcer open for multiple months. Patient relates minimal discomfort. All questions answered. Discussed procedure in detail and postoperative recovery. All potential risks, benefits, complications, alternatives, rehab, potential for incomplete relief of symptoms, need for further surgery, DVT, PE, , persistent pain, swelling, scarring, weakness, neurovascular, wound complications, and potential for amputations were discussed with patient. Unwanted outcomes such as, but not limited to were reviewed including under correction, overcorrection, return of deformity, infection. All questions were answered. Patient has decided to proceed with procedure as indicated. Preoperative diagnosis: Gas gangrene left hallux Postoperative diagnosis: same Name of operation: Amputation Left great toe Surgeon Dr. Silva Barrel Straightener: None Anesthesia: local with monitored anesthesia care Hemostasis: None Estimated blood loss: minimal Procedure in detail: Under mild sedation the patient was brought in the operating room placed on the operating table in supine position. A pneumatic ankle tourniquet was then placed about the patient's left ankle. Following IV sedation local anesthesia was obtained about the left ray utilizing 15 cc of a one-to-one mixture of 1% lidocaine plain and 0.5% Marcaine plain. The foot was then prepped scrubbed and draped in usual aseptic manner. Attention was then directed to the gangrenous great toe. A fishmouth incision was created utilizing a sharp, sterile, #15 blade. The incision which was deepened through subcutaneous tissue using sharp blunt dissection. Care was taken to identify and retract all vital neurovascular structures. All bleeders were ligated and cauterized necessary. At this time the left hallux was removed at the metatarsal phalangeal joint. The distal portion of the left hallux distal phalanx was sent to microbiology and the remainder of the left hallux was sent to pathology. Copious amounts of sterile normal saline were utilized to flush the incision site. The skin was then primarily closed utilizing 3-0 nylon in horizontal suture mattress techniques as well as simple suture closure. Upon completion of the procedure the incision was dressed with Betadine soaked Adaptic followed by sterile compressive dressing consisting of 4 x 4's Linwood Kerlix ABD. A post operative shoe was then applied. The Patient tolerated the procedure and anesthesia well. He was transferred to recovery room vital signs stable and vascular status intact to the left foot following. Patient re-admitted to the floor resuming all pre-operative orders. I attest to the content of the Intraoperative Record and any orders documented therein. Any exceptions are noted below.
[2023-04-26] MEDS: fentaNYL citrate PF 100 MCG/2 ML VIAL IV PRN ×4 (16:48→17:03)
--- NOTE | 2023-04-26 17:06 | Anesthesiology Progress Note ---
Date of Service April 26, 2023 Anesthesia Post Procedure Vital Signs Vital Signs: Temp Pulse Pulse Resp BP BP Pulse Ox 04/26/23 16:55 68 12 102/64 99 04/26/23 16:45 66 16 115/67 100 04/26/23 16:35 36.2 C L 70 16 98/58 L 100 04/26/23 15:00 37 C 72 18 154/92 H 100 04/26/23 11:55 36.9 C 70 16 159/85 H 98 04/26/23 07:53 70 18 161/90 H 98 04/26/23 06:55 69 04/26/23 06:28 75 18 98 04/26/23 06:08 73 18 125/89 97 04/26/23 03:00 168/89 H 04/26/23 03:00 80 23 98 04/26/23 02:50 81 24 98 04/26/23 02:40 80 23 98 04/26/23 02:30 78 22 100 04/26/23 02:20 77 28 H 99 04/26/23 02:10 77 22 100 04/26/23 02:00 78 21 98 04/26/23 02:00 168/96 H 04/26/23 01:50 78 26 H 99 04/26/23 01:40 77 23 98 04/26/23 01:30 78 24 99 04/26/23 01:27 167/96 H 04/26/23 01:27 78 26 H 99 04/26/23 01:20 78 13 100 04/26/23 01:10 77 24 98 04/26/23 01:00 79 26 H 99 04/26/23 01:00 177/115 H 04/26/23 01:00 78 18 167/96 H 99 04/26/23 00:50 80 19 99 04/26/23 00:40 80 18 99 04/26/23 00:30 81 26 H 99 04/26/23 00:20 79 15 99 04/26/23 00:13 82 18 100 04/26/23 00:11 82 17 04/26/23 00:11 177/86 H 04/26/23 00:11 82 04/25/23 22:38 36.7 C 95 H 18 194/111 H 99 O2 Del Method O2 Flow Rate 04/26/23 16:55 Oxymask 4 04/26/23 16:45 Oxymask 4 04/26/23 16:35 Oxymask 4 04/26/23 15:00 Room Air 04/26/23 11:55 Room Air 04/26/23 07:53 Room Air 04/26/23 06:55 04/26/23 06:28 Room Air 04/26/23 06:08 Room Air 04/26/23 03:00 04/26/23 03:00 04/26/23 02:50 04/26/23 02:40 04/26/23 02:30 04/26/23 02:20 04/26/23 02:10 04/26/23 02:00 04/26/23 02:00 04/26/23 01:50 04/26/23 01:40 04/26/23 01:30 04/26/23 01:27 04/26/23 01:27 04/26/23 01:20 04/26/23 01:10 04/26/23 01:00 04/26/23 01:00 04/26/23 01:00 Room Air 04/26/23 00:50 04/26/23 00:40 04/26/23 00:30 04/26/23 00:20 04/26/23 00:13 Room Air 04/26/23 00:11 04/26/23 00:11 04/26/23 00:11 04/25/23 22:38 Room Air Pain Intensity Left Toe: Pain Intensity: 8 Left Foot: Pain Intensity: 6 Transfer of Care Handoff Completed per policy Notes Mental Status: alert / awake / arousable Patient Amnestic to Procedure: Yes Nausea / Vomiting: adequately controlled Pain: adequately controlled Airway Patency, RR, SpO2: stable & adequate BP & HR: stable & adequate Hydration State: stable & adequate Anesthetic Complications: no major complications apparent
--- NOTE | 2023-04-26 19:45 | Hospitalist Progress Note ---
Date of Service April 26, 2023 delayed entry date of service noted above Assessment & Plan (1) Gangrene of toe of left foot: Plan: 47-year-old male past med significant for high blood pressure, diabetes, high cholesterol as per patient and not taking medication since 2019 comes because of left big toe infection which seems gangrenous. Patient says 2 months ago the infection started left big toe with callus and progressive got worse. Gangrene of toe of left foot States callus of left big toe got infected since last 2 months and progressively got worse Not seeing doctors for long time s/p amputation of L big toe continue IV antibiotics pain control Hypertensive urgency monitor HEATHER versus chronic kidney disease Creatinine of 3.8--> 3.5 Avoid nephrotoxic agents Getting gentle fluids Nephrology consult Diabetes Currently not on medications Insulin sliding scale We will follow blood sugars and HbA1c levels History of hyperlipidemia We will follow lipid profile DVT prophylaxis SCDs for now Disposition Med/telemetry Full code Admission and Anticipated Discharge Date Admission Date: April 26, 2023 Subjective ff up for L big toe gangrene, etc seen resting in bed, comfortable somewhat drowsy states he feels fine overall no chest pain, dyspnea, palpitations, dizziness (+) pain on the left foot no other new symptoms Review of Systems Review of Systems: all noted and negative except for above Physical Exam Physical Exam: General- oriented x 3, not in distress, speaks in sentences with no effort or accessory muscle use Eyes- anicteric Neck- no JVD Lungs- clear breath sounds bilaterally, no rales/wheezes Heart- normal rate, regular rhythm; no murmurs Abdomen- normal bowel sounds, nondistended, soft, nontender Extremities- no pretibial edema, no calf tenderness Left foot: Bandage in place, no bleeding or discharge next Neuro- alert, oriented x 3; no gross focal neurologic deficits Skin- warm & dry Results & Data Results & Data Vital Signs (Past 12 Hours) Vital Signs Temp Pulse Pulse Resp BP Pulse Ox O2 Del Method 04/26/23 19:34 70 16 172/92 H 100 Room Air 04/26/23 19:19 36.7 C 70 18 152/83 H 100 Room Air 04/26/23 19:03 36.6 C 16 161/82 H 100 Room Air 04/26/23 18:15 63 17 153/85 H 100 Room Air 04/26/23 18:00 61 16 137/80 99 Room Air 04/26/23 17:45 65 15 163/92 H 100 Room Air 04/26/23 17:30 68 15 159/92 H 100 Room Air 04/26/23 17:15 36.4 C L 68 14 134/83 100 Room Air 04/26/23 17:05 64 13 124/74 99 Room Air 04/26/23 16:55 68 12 102/64 99 Oxymask 04/26/23 16:45 66 16 115/67 100 Oxymask 04/26/23 16:35 36.2 C L 70 16 98/58 L 100 Oxymask 04/26/23 15:00 37 C 72 18 154/92 H 100 Room Air 04/26/23 11:55 36.9 C 70 16 159/85 H 98 Room Air 04/26/23 07:53 70 18 161/90 H 98 Room Air O2 Flow Rate 04/26/23 19:34 04/26/23 19:19 04/26/23 19:03 04/26/23 18:15 04/26/23 18:00 04/26/23 17:45 04/26/23 17:30 04/26/23 17:15 04/26/23 17:05 04/26/23 16:55 4 04/26/23 16:45 4 04/26/23 16:35 4 04/26/23 15:00 04/26/23 11:55 04/26/23 07:53
[2023-04-26] MEDS: LACTATED RINGER'S 1,000 ML IV SCH (19:56)
[2023-04-26] MEDS: HYDROmorphone INJ 0.5 MG/0.5 ML SYR IV PRN (20:14)
--- NOTE | 2023-04-26 20:37 | Nephrology Consultation ---
Date of Consultation April 26, 2023 Assessment & Plan (1) HEATHER (acute kidney injury): unknown baseline creatinine. p/w creat 3.5. duration of abnormal renal function unknown. denies nsaid use or a fall. still some data missing. likeliest ATN in setting of sepsis/diabetic foot -daily bmp -strict I /o -needs renal u/s -has NAGMA > will stop NS and start LR History of Present Illness Reason for Consultation: HEATHER/CKD Requesting Physician: Dr Avila Attending Physician: Jovan Perkins MD History of Present Illness 47 y/o M whom I'm asked to see for HEATHER/CKD was admitted today for management of a gangrenous L toe and found to have presenting creatinine 3.5. PMH includes HTN, DM, HL; chronic neuropathy and low back pain; active tobacco abuse; remote hx of EtOH abuse Hx of not accessing medical care since 2019. Pt reports 2 mos of callus that progressed to his L great toe inection and pain. He is slated to go to OR later today for amputation of L great toe no n/v, no rash, fever. had mild [place]. no acute vision changes. stable chronic low back and sciatic / neuropathic pain. no n/v/d/c currently denies new worrisome urinary frequency, dysuria, or challenges passing urine Allergies Allergy/AdvReac Type Severity Reaction Status Date / Time Iodinated Contrast Media AdvReac Mild SEVERE Verified 04/26/23 02:25 NAUSEA Home Medications Medication Instructions Recorded Confirmed Type No Known Home Medications 04/26/23 04/26/23 History Patient History Medical History Hypertension Untreated Diabetes Untreated HEATHER (acute kidney injury) Gangrene of toe of left foot Surgical History Hx of facial fracture repair History of back surgery Social History Smoking Status: Current every day smoker Tobacco Type: Cigarettes Hx Alcohol Use: Yes Alcohol type: beer Hx Substance Use: No Communication Ability: Effective Beliefs That Will Affect Care: None Current Living Situation: Alone Feels Safe at Home: Yes Safety Concerns: Feels Safe At This Time Review of Systems 2 Review of Systems: All systems reviewed & are unremarkable except as noted in HPI & below Physical Exam 2 Constitutional: well developed, well nourished and + disheveled Eyes: EOM intact bilaterally ENMT: Ears: no external ear abnormality Nose: no external nose abnormality Mouth: + dry oral mucous membranes Neck: no nuchal rigidity Respiratory: normal respiratory effort (lying flat on RA) Auscultation: + diminished lung sounds Gastrointestinal (Abdomen): Inspection/Auscultation: normal bowel sounds P ercussion/Palpation: abdomen soft; abdomen nontender Musculoskeletal: Extremities: strength 5/5 throughout and + foot abnormality (blackened L great toe) Skin: no rashes, warm and dry Neurologic: garcia, fluent speech, no tremor Results & Data Vital Signs (Past 12 Hours) Vital Signs Temp Pulse Pulse Resp BP Pulse Ox O2 Del Method 04/26/23 19:34 70 16 172/92 H 100 Room Air 04/26/23 19:19 36.7 C 70 18 152/83 H 100 Room Air 04/26/23 19:03 36.6 C 16 161/82 H 100 Room Air 04/26/23 18:15 63 17 153/85 H 100 Room Air 04/26/23 18:00 61 16 137/80 99 Room Air 04/26/23 17:45 65 15 163/92 H 100 Room Air 04/26/23 17:30 68 15 159/92 H 100 Room Air 04/26/23 17:15 36.4 C L 68 14 134/83 100 Room Air 04/26/23 17:05 64 13 124/74 99 Room Air 04/26/23 16:55 68 12 102/64 99 Oxymask 04/26/23 16:45 66 16 115/67 100 Oxymask 04/26/23 16:35 36.2 C L 70 16 98/58 L 100 Oxymask 04/26/23 15:00 37 C 72 18 154/92 H 100 Room Air 04/26/23 11:55 36.9 C 70 16 159/85 H 98 Room Air O2 Flow Rate 04/26/23 19:34 04/26/23 19:19 04/26/23 19:03 04/26/23 18:15 04/26/23 18:00 04/26/23 17:45 04/26/23 17:30 04/26/23 17:15 11/15/23 17:05 04/26/23 16:55 4 04/26/23 16:45 4 04/26/23 16:35 4 04/26/23 15:00 04/26/23 11:55 Laboratory Results 04/26/23 04:46 04/26/23 04:46 UA > 1+ glucose adn blood; 3+ dipstick protein
[2023-04-26] MEDS: PIPERACILLIN/TAZOBACTAM 4.5 GM in DEXTROSE 5% MINI-B 100 ML IV SCH (20:39)
[2023-04-27] MEDS: HYDROmorphone INJ 0.5 MG/0.5 ML SYR IV PRN ×6 (01:38→23:44)
[2023-04-27] MEDS: PIPERACILLIN/TAZOBACTAM 4.5 GM in DEXTROSE 5% MINI-B 100 ML IV SCH ×3 (04:25→19:48)
[2023-04-27 05:22] LABS: Creatinine Clr Calc Pharmacy 30.2 ml/min; Est GFR (African American) 24.5 ml/min; Est GFR (Non-African American) 21.1 ml/min
[2023-04-27] MEDS: INSULIN ASPART PER UNIT CHARGE SC SCH ×4 (06:29→21:55)
[2023-04-27] MEDS ORDERED: Nursing to Pharmacy Communication SCH (07:15)
[2023-04-27] MEDS ORDERED: VANCOMYCIN HCL 750 MG in SODIUM CHLORIDE 0.9% 250 ML IV SCH (08:00)
[2023-04-27] MEDS ORDERED: HYDROmorphone INJ 0.5 MG/0.5 ML SYR IV STA (08:06)
[2023-04-27] MEDS: LACTATED RINGER'S 1,000 ML IV SCH (08:19)
[2023-04-27 08:43] LABS: Basophils # (auto) 0.05 K/uL (0.00-0.20); Basophils % (auto) 0.4 %; Eosinophils # (auto) 0.07 K/uL (0.00-0.50); Eosinophils % (auto) 0.5 %; Hematocrit (blood only) 32.2 % (42.0-52.0); Hemoglobin 10.5 g/dl (14.0-18.0); Immature Granulocytes # (auto) 0.05 K/uL (0.01-0.20); Immature Granulocytes % (auto) 0.4 %; Lymphocytes # (auto) 0.71 K/uL (1.20-3.40); Lymphocytes % (auto) 5.6 %; Mean Corpuscular Hemoglobin 28.3 pg (25.0-34.0); Mean Corpuscular Hgb Conc 32.6 g/dL (32.0-36.0); Mean Corpuscular Volume 86.8 fL (80.0-100.0); Mean Platelet Volume 10.4 fL (9.4-12.4); Monocytes % (auto) 3.1 %; Platelet Count 269 K/uL (130-400); RDW Coefficient of Variation 13.2 % (11.5-14.5); RDW Standard Deviation 41.6 fL (36.4-46.3); Red Blood Count 3.71 M/uL (4.70-6.10); White Blood Count 12.78 K/ul (4.8-10.8)
[2023-04-27 09:16] LABS: Calcium 8.3 mg/dl (8.6-10.3); Potassium 4.4 mmol/L (3.5-5.1)
[2023-04-27 09:22] LABS: BUN Creatinine Ratio 11.4 (10-20); Creatinine Clr Calc Pharmacy 30.9 ml/min; Est GFR (African American) 25.1 ml/min; Est GFR (Non-African American) 21.7 ml/min
[2023-04-27] MEDS: amLODIPine BESYLATE 5 MG TAB PO SCH (09:23)
--- NOTE | 2023-04-27 09:47 | Nephrology Progress Note ---
Date of Service April 27, 2023 Assessment & Plan (1) HEATHER (acute kidney injury): Plan: unknown baseline creatinine. not oliguric. p/w creat 3.5 on 04/26 w/ minimal improvement today. duration of abnormal renal function unknown; possible this is CKD. denies nsaid use or a fall. still some data missing. likeliest ATN in setting of sepsis/diabetic foot +/- component of CKD (risk ff include DM, HTN, tobacco abuse, lack of access to medical care). on vanco /zosyn. s/p 04/26 L great toe amputation -daily bmp -strict I /o -needs renal u/s > so ordered -has NAGMA unchanged w/ LR and HTN > will stop LR and start slightly hypotonic IVF > 1/2 NS w/ 50 mEq/L sodium bic still at 80 ml /hr >monitor vanco levels and dose BY level - did d/w pharmacy >for HTN also on amlodipine 5 mg daily; has not needed PRN labetalol and will hold off on standing dose for now; ensure DVT prophylaxis and focus on pain control for now Pt w/ high risk for morbidity, hospital readmission, mortality related to HEATHER and advanced / unexplained renal failure. Care coordinated w/ Dr Perkins and w/ pharmacy Admission and Anticipated Discharge Date Admission Date: April 26, 2023 Subjective s/p L great toe amputation 04/27; surgery uneventful; tolerating po, no n/v, no sob; markedly uncontrolled pain L foot; he tells me " something's not right" in foot; MD and RN aware of pain issues and addressing; again reiterates no nsaids Review of Systems 2 Review of Systems: All systems reviewed & are unremarkable except as noted in Subjective Physical Exam 2 Constitutional: well developed, well nourished, + acute distress (mild from pain) and cooperative Eyes: EOM intact bilaterally ENMT: Ears: no external ear abnormality Nose: no external nose abnormality Mouth: + dry oral mucous membranes Neck: no nuchal rigidity Respiratory: normal respiratory effort Auscultation: + diminished lung sounds Cardiovascular: RRR, no murmur, no edema Gastrointestinal (Abdomen): Inspection/Auscultation: normal bowel sounds P ercussion/Palpation: abdomen soft; abdomen nontender Musculoskeletal: Extremities: strength 5/5 throughout and + foot abnormality (blackened L great toe) Skin: no rashes, warm and dry Neurologic: garcia, fluent speech, no tremor Psychiatric: Orientation: alert and oriented x 3 Insight: good insight J udgment: good judgement Results & Data Vital Signs (Past 12 Hours) Vital Signs Temp Pulse Pulse Resp BP Pulse Ox O2 Del Method 04/27/23 08:10 37.6 C H 96 H 18 156/84 H 98 Room Air 04/27/23 03:32 37.7 C H 92 H 18 167/82 H 100 Room Air 04/26/23 23:02 36.8 C 104 H 20 160/98 H 98 Room Air 04/26/23 22:01 85 Laboratory Results 04/27/23 04:16 04/27/23 04:13 RD vanc 19
[2023-04-27] MEDS: SODIUM BICARBONATE 8.4% 50 MEQ in SODIUM CHLORIDE 0.45 % 1,000 ML IV SCH ×2 (11:01→23:40)
--- NOTE | 2023-04-27 11:36 | Pharmacy Report ---
Pharmacy PK ABX Note - Date of Service April 27, 2023 - Assessment and Plan Assessment 47 year old M receiving vancomycin and Zosyn for treatment of toe gangrene on left foot. Blood cultures show no growth at 24 hours. Left great toe culture (04/26) growing gram negative bacilli w/ gram + cocci on gram stain. Improving HEATHER (3.88 -> 3.24 mg/dL) w/ unknown baseline SCr. Nephrology consulted. Day #2 of antimicrobial therapy. Plan Vancomycin * Previously received 1750 mg IV x 1 @0045 on 04/26, followed by 1 g IV x 1 at ~11 on 04/26 * Random level obtained 04/27/23 resulted as 19.2 mcg/mL. * Predicted AUC at steady state: 535 mg/L.hr * Change to 750 mg IV every 24 hours * Repeat random level to be ordered for: 04/29/23 if therapy continues Zosyn * 4.5 g IV q8h - appropriate, no change Pharmacy will continue to follow and will adjust dose/frequency as necessary. Thank you.
--- NOTE | 2023-04-27 12:18 | XRay Report ---
XR chest 1V portable CLINICAL HISTORY: Sepsis. COMPARISON STUDY: No previous studies for comparison. FINDINGS: Lung volumes are normal. Lungs are clear. There is no pneumothorax or pleural effusion. Car diac size is normal. Mediastinal contours are normal. There is no evidence for pulmonary edema. IMPRESSION: No acute cardiopulmonary findings. ACT 112: Negative or not required by law. Electronically signed by: Roberto Escalante M.D. 04/27/2023 12:16 PM
--- NOTE | 2023-04-27 13:18 | Infectious Disease Consult ---
Date of Service April 27, 2023 Telehealth Information I performed this visit using a real-time telehealth connection between my location and the patients location ([facility]). After connecting through interactive tele-video, patient was identified by name and date of and/or wristband check.Patient (or authorized healthcare compliance representative dealer) was informed that this was a telemedicine visit and it was being conducted confidentially over secure lines. My office door was closed and no one else was present in the room with me.Patient (or authorized healthcare compliance representative dealer) provided consent to proceed with the visit, expressed an understanding of privacy and security of the telemedicine visit, and gave permission to have a hospital compliance representative dealer in the room in order to assist with the visit and to conduct portions of the visit, as needed. I informed the patient (or authorized healthcare compliance representative dealer) that I reviewed their record and presented the opportunity for them to ask any questions regarding the visit today. The patient agreed to participate. 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 The patient has good vancomycin level w/o any additional vanco dosing in view of HEATHER. - F/u OR culture: GNR and GPC seen on gram stain at this point. - Anticipate a relatively short course of abx therapy (i.e., 7-10 days from 04/26/23) as the infected has been removed in its entirety and we are only dealing w/ remaining soft tissue infection if there is any. - Final abx rec pending More than 50% of [id number] visit was spent counseling and coordinating care pertaining to the patient's infection diagnosis, additional work-up, and treatment option(s) as well as potential adverse events of the treatment. History of Present Illness History of Present Illness This 47 y/o male (Stephen) w/ hx of DM2 w/ neuropathy, smoking, HLD, HTN and medical noncompliance, presented to [facility] ED on 04/26/23 for L great toe infection. He reports 2 months of callus on L great toe that progressed to an ulcer w/ pain. He did not see a doctor for the condition. No f/c at home but he has noted the minimal redness was noted at the base of the toe: it was black. No fever was noted on admission but new low grade fever was noted today. XR findings are consistent w/ gas gangrene and OM. The patient had L great toe amputation (04/26/23: removed at the MTP joint). He is resting comfortably in bed but has moderate amount of pain at the amputation site. Denies f/c, n/v, abd pain, diarrhea, coughing, cp, sob, or urinary symptoms. He did not take any abx prior to admission. Allergies Allergy/AdvReac Type Severity Reaction Status Date / Time Iodinated Contrast Media AdvReac Mild SEVERE Verified 04/26/23 02:25 NAUSEA Home Medications Medication Instructions Recorded Confirmed Type No Known Home Medications 04/26/23 04/26/23 History Patient History Medical History Hypertension Untreated Diabetes Untreated HEATHER (acute kidney injury) Gangrene of toe of left foot Surgical History Hx of facial fracture repair History of back surgery Social History Smoking Status: Current every day smoker Tobacco Type: Cigarettes Hx Alcohol Use: Yes Alcohol type: beer Hx Substance Use: No Communication Ability: Effective Beliefs That Will Affect Care: None Current Living Situation: Alone Feels Safe at Home: Yes Safety Concerns: Feels Safe At This Time Assistive Devices: None Review of Systems as HPI and all others negative Physical Exam General: no acute distress Lungs: breathing comfortably on room air Neuro: awake, alert, oriented x3 Extremity: L foot w/ clean amputation site on 1st MT w/ intact sutures, minimal erythema noted at the incision but moderate tenderness per patient, no wound dehiscence or obvious purulent discharge Results & Data Vital Signs (Past 12 Hours) Vital Signs Temp Pulse Pulse Resp BP Pulse Ox O2 Del Method 04/27/23 13:00 36.7 C 81 20 137/70 99 Room Air 04/27/23 08:10 37.6 C H 96 H 18 156/84 H 98 Room Air 04/27/23 07:30 93 H 11/16/23 03:32 37.7 C H 92 H 18 167/82 H 100 Room Air Laboratory Results Labs (04/27/23) WBC 12.78K H 10.5 Plt 269K Cr 3.24 LFT unremarkable HgbA1C 7.5 Vanco trough: 18.7 (04/26) -> 19.2 (04/27) Blood cx (04/25/23): NGTD L 1st toe bone culture, distal phalanx (04/26): GPC, GNB CXR (04/25): No acute cardiopulmonary findings. XR toe (04/25): Soft tissue ulcer with deep tissue gas which may be secondary to direct indication with the ulcer versus necrotizing fasciitis/gas gangrene. There is associated osteomyelitis/osteonecrosis of the first distal phalanx with pathologic intra-articular fracturing. Doppler (04/26): 1. No arterial occlusion identified. 2. Diffuse atherosclerosis with elevated peak systolic velocities and monophasic waveforms within the left lower leg compatible with multifocal areas of high- grade stenoses. 3. Mostly triphasic waveforms throughout the right lower extremity.
--- NOTE | 2023-04-27 14:34 | Ultrasound Report ---
RENAL ULTRASOUND HISTORY: Acute kidney injury. COMPARISON: None. FINDINGS: Right kidney: 11.7 cm. No hydronephrosis. Normal corticomedullary differentiation and cortical thickn ess. Left kidney: 11.4 cm. No hydronephrosis. Normal corticomedullary differentiation and cortical thickne ss. Bladder: No bladder wall thickening. The bilateral ureteral jets were identified. IMPRESSION: Normal renal ultrasound. ACT 112: Negative or not required by law. Electronically signed by: Johnny Danielson M.D. 04/27/2023 2:33 PM
[2023-04-27] MEDS: ACETAMINOPHEN 500 MG TAB PO SCH (16:06)
[2023-04-28] MEDS: HYDROmorphone INJ 0.5 MG/0.5 ML SYR IV PRN ×6 (02:49→20:02)
[2023-04-28] MEDS: PIPERACILLIN/TAZOBACTAM 4.5 GM in DEXTROSE 5% MINI-B 100 ML IV SCH (04:30)
[2023-04-28] MEDS: ACETAMINOPHEN 500 MG TAB PO SCH ×2 (05:50→18:26)
--- NOTE | 2023-04-28 06:48 | Orthopedic Progress Note ---
Date of Service April 27, 2023 Assessment & Plan (1) Gangrene of toe of left foot: Plan: Patient seen, evaluated, and treated. Patient seen at bedside status post day #1 Left great toe amputation (DOS: 04/26/23) secondary to gas gangrene, osteomyelitis. Surgical care obtained clear margins and source control. Awaiting cultures and sensitives. Thank you for allowing me to participate in the care of this Patient. (2) Diabetes: Admission and Anticipated Discharge Date Admission Date: April 26, 2023 Subjective Patient seen at bedside status post day #1 Left great toe amputation (DOS: 04/26/23). He resting comfortably and aroused from sleep. Patient does complain of increased pain. Review of Systems Review of Systems: All systems reviewed & are unremarkable except as noted in Subjective Physical Exam Constitutional: well developed, well nourished, cooperative and comfortable Eyes: normal visual adair by confrontation Neck: normal visual inspection Respiratory: normal respiratory effort Cardiovascular: Rate/Rhythm: regular rate and regular rhythm Heart Sounds: normal S1 and normal S2 Vessels: posterior tibial pulses present and dorsalis pedis pulses present Skin: + wound (Left great toe amputation sutur es intact. Skin well co-apted. ) Neurologic: moves all extremities Psychiatric: Orientation: alert and oriented x 3 Results & Data Vital Signs (Past 12 Hours) Vital Signs Temp Pulse Pulse Resp BP Pulse Ox O2 Del Method 04/28/23 02:36 36.7 C 71 18 158/94 H 99 Room Air 04/28/23 00:42 67 04/27/23 22:38 36.6 C 66 18 151/81 H 99 Room Air 04/27/23 19:13 37.0 C 70 18 154/76 H 99 Room Air
--- NOTE | 2023-04-28 06:50 | Orthopedic Progress Note ---
Date of Service April 28, 2023 Assessment & Plan (1) Gangrene of toe of left foot: Plan: Patient seen, evaluated, and treated. Patient seen at bedside status post day #2 Left great toe amputation (DOS: 04/26/23) secondary to gas gangrene, osteomyelitis. Surgical care obtained clear margins and source control. Awaiting cultures and sensitives. Patient is weight bearing as tolerated. Surgical shoe ordered to bedside. Appreciate ID consult. Thank you for allowing me to participate in the care of this Patient. (2) Diabetes: Admission and Anticipated Discharge Date Admission Date: April 26, 2023 Subjective Patient seen at bedside status post day #2 Left great toe amputation (DOS: 04/26/23). He resting comfortably and aroused from sleep. Patient does decreased pain and well controlled. Physical Exam Constitutional: well developed, well nourished, cooperative and comfortable Eyes: normal visual adair by confrontation Neck: normal visual inspection Respiratory: normal respiratory effort Cardiovascular: Rate/Rhythm: regular rate and regular rhythm Heart Sounds: normal S1 and normal S2 Vessels: posterior tibial pulses present and dorsalis pedis pulses present Skin: + wound (Left great toe amputation sutur es intact. Skin well co-apted. ) Neurologic: moves all extremities Psychiatric: Orientation: alert and oriented x 3 Results & Data Vital Signs (Past 12 Hours) Vital Signs Temp Pulse Pulse Resp BP Pulse Ox O2 Del Method 04/28/23 02:36 36.7 C 71 18 158/94 H 99 Room Air 04/28/23 00:42 67 04/27/23 22:38 36.6 C 66 18 151/81 H 99 Room Air 04/27/23 19:13 37.0 C 70 18 154/76 H 99 Room Air
[2023-04-28 07:27] LABS: BUN Creatinine Ratio 11.6 (10-20); Calcium 8.4 mg/dl (8.6-10.3); Creatinine Clr Calc Pharmacy 29.8 ml/min; Est GFR (African American) 24.1 ml/min; Est GFR (Non-African American) 20.8 ml/min; Potassium 4.3 mmol/L (3.5-5.1)
[2023-04-28 07:38] LABS: Basophils # (auto) 0.05 K/uL (0.00-0.20); Eosinophils # (auto) 0.17 K/uL (0.00-0.50); Eosinophils % (auto) 3.2 %; Hematocrit (blood only) 31.9 % (42.0-52.0); Hemoglobin 10.4 g/dl (14.0-18.0); Immature Granulocytes # (auto) 0.03 K/uL (0.01-0.20); Immature Granulocytes % (auto) 0.6 %; Lymphocytes # (auto) 1.06 K/uL (1.20-3.40); Lymphocytes % (auto) 20.2 %; Mean Corpuscular Hemoglobin 28.4 pg (25.0-34.0); Mean Corpuscular Hgb Conc 32.6 g/dL (32.0-36.0); Mean Corpuscular Volume 87.2 fL (80.0-100.0); Mean Platelet Volume 10.3 fL (9.4-12.4); Monocytes # (auto) 0.45 K/uL (0.11-0.59); Monocytes % (auto) 8.6 %; Neutrophils # (auto) 3.49 K/uL (1.40-6.50); Neutrophils % (auto) 66.4 %; Platelet Count 201 K/uL (130-400); RDW Standard Deviation 41.2 fL (36.4-46.3); Red Blood Count 3.66 M/uL (4.70-6.10); White Blood Count 5.25 K/ul (4.8-10.8)
[2023-04-28] MEDS ORDERED: VANCOMYCIN HCL 750 MG in SODIUM CHLORIDE 0.9% 250 ML IV ONE (08:00)
[2023-04-28] MEDS: amLODIPine BESYLATE 5 MG TAB PO SCH (08:14)
[2023-04-28] MEDS: INSULIN ASPART PER UNIT CHARGE SC SCH ×4 (09:21→21:30)
--- NOTE | 2023-04-28 10:17 | Infectious Disease Progress Nt ---
Date of Service April 28, 2023 Telehealth Information Note written after chart review Assessment & Plan (1) Soft tissue infection of foot: Plan: Based on the culture result (Morganella susceptible to all abx tested except for amp/sulb (intrinsically resistant), Staph sp w/ pending susceptibility, Another GPC w/ pending ID), I recommend the following: - Stop zosyn - Start CTX 1 gm iv qd to cover the Morganella sp - Patient has already received vancomycin iv: no additional dose needed as long as level is 10-15 (for soft tissue infection). This will be sufficient for empiric coverage just in case the patient has MRSA and Enterococcus sp - Anticipate 7-10 days from 04/26/23. - If discharging patient before end of abx therapy, I recommend to use cipro to cover the Morganella as it is intrinsically resistant to 1st and 2nd gen cephalosporins and oral 3rd gen cephalosporins such as cefdinir, cefpodoxime, etc., may not have reliable coverage (i.e., they are not equal to iv ceftriaxone). Will need to wait to comment on oral abx for the Staph sp and the other GPC. Results & Data Vital Signs (Past 12 Hours) Vital Signs Temp Pulse Pulse Resp BP Pulse Ox O2 Del Method 04/28/23 07:59 36.8 C 64 16 133/73 100 Room Air 04/28/23 07:39 76 04/28/23 02:36 36.7 C 71 18 158/94 H 99 Room Air 04/28/23 00:42 67 04/27/23 22:38 36.6 C 66 18 151/81 H 99 Room Air
[2023-04-28] MEDS ORDERED: traMADol HCL 50 MG TABLET PO PRN (10:31)
--- NOTE | 2023-04-28 10:57 | Nephrology Progress Note ---
Date of Service April 28, 2023 Assessment & Plan (1) HEATHER (acute kidney injury): Plan: unchanged renal insufficiency w/ unknown baseline creatinine. not oliguric. p/w creat 3.5 on 04/26 w/ again minimal improvement today. duration of abnormal renal function unknown; possible this is CKD. denies nsaid use or a fall. still some data missing. likeliest ATN in setting of sepsis/diabetic foot +/- component of CKD (risk ff include DM, HTN, tobacco abuse, lack of access to medical care). on vanco /zosyn. s/p 04/26 L great toe amputation. chemistries ok but for emerging NAGMA. Renal u/s unremarkable. -daily bmp -strict I /O -has NAGMA unchanged w/ LR, w/ bicarb rich fluids > will stop IVF >monitor vanco levels and dose BY level - did d/w pharmacy; goal is trough 10-15 >pt currently on ceftriaxone for Morganella and vanco for Staph + GPC; plan abtx thru 05/03-05/06; cipro at d/c +/- al po for G+'s >for HTN also on amlodipine 5 mg daily; has not needed PRN labetalol and will hold off on standing dose for now; ensure DVT prophylaxis and focus on current improved pain control for now Pt w/ high risk for morbidity, hospital readmission, mortality related to HEATHER and advanced / unexplained renal failure. That said his labs hav been steady. Will sign off NEPHROLOGY DISCHARGE RECS -hospital discharge visit w/ [facility] in [facility] or [facility] (he lives in [place]) w/ BMP UACM, ACR all to be ordered by nephro RN and done about 3 days before appt -bmp at PCP f/u w/in a week of d/c (needs to est w/ PCP) -no nsaids at d/c Admission and Anticipated Discharge Date Admission Date: April 26, 2023 Subjective pain control still touch and go. no n/v or D. taking regular po. no sob or edema or voiding concerns Review of Systems 2 Review of Systems: All systems reviewed & are unremarkable except as noted in Subjective Physical Exam 2 Constitutional: well developed, well nourished and cooperative; no acute distress Eyes: EOM intact bilaterally ENMT: Ears: no external ear abnormality Nose: no external nose abnormality Mouth: + dry oral mucous membranes Neck: no nuchal rigidity Respiratory: normal respiratory effort Auscultation: + diminished lung sounds Cardiovascular: RRR, no murmur, no edema Gastrointestinal (Abdomen): Inspection/Auscultation: normal bowel sounds P ercussion/Palpation: abdomen soft; abdomen nontender Musculoskeletal: Extremities: strength 5/5 throughout and + foot abnormality (bandaged stump of L great toe) Skin: no rashes, warm and dry Psychiatric: Orientation: alert and oriented x 3 Insight: good insight J udgment: good judgement Results & Data Vital Signs (Past 12 Hours) Vital Signs Temp Pulse Pulse Resp BP Pulse Ox O2 Del Method 04/28/23 07:59 36.8 C 64 16 133/73 100 Room Air 04/28/23 07:39 76 04/28/23 02:36 36.7 C 71 18 158/94 H 99 Room Air 04/28/23 00:42 67 Laboratory Results 04/28/23 06:50 04/28/23 06:50
[2023-04-28] MEDS: oxyCODONE HCL IR 5 MG TAB (IMMEDIATE RELEASE) PO PRN ×2 (11:03→17:35)
[2023-04-28] MEDS: POLYETHYLENE (MIRALAX) 17 GM PACK PO SCH (11:03)
[2023-04-28] MEDS ORDERED: cefTRIAXone SODIUM 1,000 MG in DEXTROSE 5 % MINI-B 50 ML IV SCH (12:00)
[2023-04-28] MEDS ORDERED: hydrALAZINE HCL 20 MG/ML VIAL IV PRN (17:45)
--- NOTE | 2023-04-28 17:45 | Hospitalist Progress Note ---
Date of Service April 28, 2023 Assessment & Plan (1) Gangrene of toe of left foot: Plan: 47-year-old male past med significant for high blood pressure, diabetes, high cholesterol as per patient and not taking medication since 2019 comes because of left big toe infection which seems gangrenous. Patient says 2 months ago the infection started left big toe with callus and progressive got worse. Gangrene of toe of left foot States callus of left big toe got infected since last 2 months and progressively got worse Not seeing doctors for long time Placed on IV Vanco and Zosyn IV fluids We will follow arterial ultrasound of lower extremities IV Dilaudid as needed N.p.o. Consult Ortho 04/27 s/p L big toe amputation 04/28 wound stable wound culture: Mikhail Ruff (+) change abx to Ceftri ff up cultures continue pain control PT/OT eval Lovenox SC for DVT prophylaxis Hypertensive urgency States has history of hypertension and not take any medications We will place him on IV labetalol as needed for now 04/28 improving with Amlodipine monitor PRN Hydralazine HEATHER versus chronic kidney disease Creatinine of 3.8--> 3.3 bicarb drip discontinued Nephrology consult Diabetes Currently not on medications Insulin sliding scale a1c 7.5 History of hyperlipidemia DVT prophylaxis SCDs for now Disposition Med/telemetry Full code Admission and Anticipated Discharge Date Admission Date: April 26, 2023 Subjective ff up for L toe gangrene, etc seen resting in bed, comfortable pain is better today compared to yesterday no fever/chills no chest pain, dyspnea, palpitations, dizziness no other symptoms Review of Systems Review of Systems: all noted and negative except for above Physical Exam Physical Exam: General- oriented x 3, not in distress, speaks in sentences with no effort or accessory muscle use Eyes- anicteric Neck- no JVD Lungs- clear breath sounds bilaterally, no rales/wheezes Heart- normal rate, regular rhythm; no murmurs Abdomen- normal bowel sounds, nondistended, soft, nontender Extremities- no pretibial edema, no calf tenderness heavy dressing in place Neuro- alert, oriented x 3; no gross focal neurologic deficits Skin- warm & dry Results & Data Results & Data Vital Signs (Past 12 Hours) Vital Signs Temp Pulse Pulse Resp BP Pulse Ox O2 Del Method 04/28/23 15:51 72 04/28/23 11:52 36.7 C 59 L 16 160/79 H 96 Room Air 04/28/23 10:57 36.6 C 60 17 148/84 H 98 Room Air 04/28/23 07:59 36.8 C 64 16 133/73 100 Room Air 04/28/23 07:39 76 all noted and reviewed including below
--- NOTE | 2023-04-28 17:48 | Hospitalist Progress Note ---
Date of Service April 27, 2023 delayed entry date of service noted above Assessment & Plan (1) Gangrene of toe of left foot: Plan: 47-year-old male past med significant for high blood pressure, diabetes, high cholesterol as per patient and not taking medication since 2019 comes because of left big toe infection which seems gangrenous. Patient says 2 months ago the infection started left big toe with callus and progressive got worse. Gangrene of toe of left foot States callus of left big toe got infected since last 2 months and progressively got worse Not seeing doctors for long time Placed on IV Vanco and Zosyn IV fluids We will follow arterial ultrasound of lower extremities IV Dilaudid as needed N.p.o. Consult Ortho 04/26 s/p L big toe amputation 04/27 pain increasing adjust pain meds monitor closely ff up cultures on IV abx, ID consulted Hypertensive urgency States has history of hypertension and not take any medications We will place him on IV labetalol as needed for now 04/27 on Amlodipine monitor PRN Hydralazine HEATHER versus chronic kidney disease Creatinine of 3.8--> 3.3 bicarb drip Nephrology consult Diabetes Currently not on medications Insulin sliding scale a1c 7.5 History of hyperlipidemia DVT prophylaxis SCDs for now Disposition Med/telemetry Full code Admission and Anticipated Discharge Date Admission Date: April 26, 2023 Subjective ff up for L big toe gangrene, etc seen resting in bed, not in distress having significant pain on the L foot surgical site no chest pain, dyspnea, palpitations, dizziness no other new symptoms Review of Systems Review of Systems: all noted and negative except for above Physical Exam Physical Exam: General- oriented x 3, not in distress, speaks in sentences with no effort or accessory muscle use Eyes- anicteric Neck- no JVD Lungs- clear breath sounds bilaterally, no rales/wheezes Heart- normal rate, regular rhythm; no murmurs Abdomen- normal bowel sounds, nondistended, soft, nontender Extremities- no pretibial edema, no calf tenderness Left foot: Bandage in place, no bleeding or discharge Neuro- alert, oriented x 3; no gross focal neurologic deficits Skin- warm & dry Results & Data Results & Data Vital Signs (Past 12 Hours) Vital Signs Temp Pulse Pulse Resp BP Pulse Ox O2 Del Method 04/28/23 15:51 72 04/28/23 11:52 36.7 C 59 L 16 160/79 H 96 Room Air 04/28/23 10:57 36.6 C 60 17 148/84 H 98 Room Air 04/28/23 07:59 36.8 C 64 16 133/73 100 Room Air 04/28/23 07:39 76 all noted and reviewed including below
[2023-04-28] MEDS: ADVANCED PROBIOTIC 1250 MG CAPSULE PO SCH (18:26)
[2023-04-28] MEDS ORDERED: oxyCODONE HCL IR 5 MG TAB (IMMEDIATE RELEASE) PO STA (21:09)
[2023-04-28] MEDS: HEPARIN SOD 5,000 UNIT/0.5 ML VIAL SQ SCH (21:28)
[2023-04-29] MEDS: oxyCODONE HCL IR 5 MG TAB (IMMEDIATE RELEASE) PO PRN ×5 (00:46→20:14)
[2023-04-29] MEDS: HYDROmorphone INJ 0.5 MG/0.5 ML SYR IV PRN ×6 (01:59→21:53)
[2023-04-29 05:49] LABS: Basophils # (auto) 0.05 K/uL (0.00-0.20); Eosinophils # (auto) 0.15 K/uL (0.00-0.50); Eosinophils % (auto) 2.9 %; Hematocrit (blood only) 32.8 % (42.0-52.0); Hemoglobin 10.9 g/dl (14.0-18.0); Immature Granulocytes # (auto) 0.01 K/uL (0.01-0.20); Immature Granulocytes % (auto) 0.2 %; Lymphocytes # (auto) 1.13 K/uL (1.20-3.40); Lymphocytes % (auto) 22.1 %; Mean Corpuscular Hemoglobin 28.8 pg (25.0-34.0); Mean Corpuscular Hgb Conc 33.2 g/dL (32.0-36.0); Mean Corpuscular Volume 86.5 fL (80.0-100.0); Mean Platelet Volume 10.6 fL (9.4-12.4); Monocytes # (auto) 0.36 K/uL (0.11-0.59); Neutrophils # (auto) 3.42 K/uL (1.40-6.50); Neutrophils % (auto) 66.8 %; Platelet Count 213 K/uL (130-400); RDW Coefficient of Variation 13.1 % (11.5-14.5); RDW Standard Deviation 41.3 fL (36.4-46.3); Red Blood Count 3.79 M/uL (4.70-6.10); White Blood Count 5.12 K/ul (4.8-10.8)
[2023-04-29] MEDS: ACETAMINOPHEN 500 MG TAB PO SCH ×2 (05:55→18:17)
[2023-04-29] MEDS: HEPARIN SOD 5,000 UNIT/0.5 ML VIAL SQ SCH ×3 (05:56→20:16)
[2023-04-29 07:08] LABS: Calcium 8.7 mg/dl (8.6-10.3); Potassium 4.7 mmol/L (3.5-5.1)
[2023-04-29 07:14] LABS: BUN Creatinine Ratio 12.2 (10-20); Creatinine Clr Calc Pharmacy 26.6 ml/min; Est GFR (African American) 19.9 ml/min; Est GFR (Non-African American) 17.2 ml/min
[2023-04-29] MEDS: amLODIPine BESYLATE 5 MG TAB PO SCH ×2 (07:29→08:19)
[2023-04-29] MEDS: POLYETHYLENE (MIRALAX) 17 GM PACK PO SCH (07:30)
[2023-04-29] MEDS: ADVANCED PROBIOTIC 1250 MG CAPSULE PO SCH (07:30)
[2023-04-29] MEDS: INSULIN ASPART PER UNIT CHARGE SC SCH ×4 (08:42→20:16)
[2023-04-29] MEDS: CIPROFLOXACIN 500 MG TAB PO SCH (11:40)
[2023-04-29] MEDS: AMOXICILLIN/CLAVULANATE 500 MG TAB PO SCH ×2 (11:40→20:15)
--- NOTE | 2023-04-29 18:53 | Hospitalist Progress Note ---
Date of Service April 29, 2023 Assessment & Plan (1) Gangrene of toe of left foot: Plan: 47-year-old male past med significant for high blood pressure, diabetes, high cholesterol as per patient and not taking medication since 2019 comes because of left big toe infection which seems gangrenous. Patient says 2 months ago the infection started left big toe with callus and progressive got worse. Gangrene of toe of left foot States callus of left big toe got infected since last 2 months and progressively got worse Not seeing doctors for long time Placed on IV Vanco and Zosyn IV fluids We will follow arterial ultrasound of lower extremities IV Dilaudid as needed N.p.o. Consult Ortho 04/27 s/p L big toe amputation 04/28 wound stable wound culture: Elzbieta Gr (+) change abx to Ceftri ff up cultures continue pain control PT/OT evkelli Lovenox SC for DVT prophylaxis 04/29 Wound culture: Morganella, Staph aureus MSSA, Enterococcus faecalis, Bacteroides Blood cultures: Negative Antibiotics changed to ciprofloxacin plus Augmentin Hypertensive urgency States has history of hypertension and not take any medications We will place him on IV labetalol as needed for now 04/29 Amlodipine increased to 10 mg daily Hydralazine 25 mg twice daily PRN Hydralazine HEATHER versus chronic kidney disease Creatinine of 3.8--> 3.3 bicarb drip discontinued Nephrology consult --Creatinine 3.9 Monitor closely Diabetes Currently not on medications Insulin sliding scale a1c 7.5 -- Upon discharge, will need glipizide 2.5 mg p.o. daily History of hyperlipidemia DVT prophylaxis Heparin subcutaneous every 8 hours Disposition Med/telemetry Full code Admission and Anticipated Discharge Date Admission Date: April 26, 2023 Subjective Follow-up for left big toe gangrene, etc. Seen resting in bed, comfortable, not in distress Still having some pain on the surgical site, pain more manageable Denies fevers or chills no chest pain, dyspnea, palpitations, dizziness No problems in urination No other new symptom Review of Systems Review of Systems: all noted and negative except for above Physical Exam Physical Exam: General- oriented x 3, not in distress, speaks in sentences with no effort or accessory muscle use Eyes- anicteric Neck- no JVD Lungs- clear breath sounds bilaterally, no rales/wheezes Heart- normal rate, regular rhythm; no murmurs Abdomen- normal bowel sounds, nondistended, soft, nontender Extremities- no pretibial edema, no calf tenderness Left foot: Heavy dressing in place, no bleeding or discharge Neuro- alert, oriented x 3; no gross focal neurologic deficits Skin- warm & dry Results & Data Results & Data Vital Signs (Past 12 Hours) Vital Signs Temp Pulse Pulse Resp BP Pulse Ox O2 Del Method 04/29/23 15:31 36.7 C 67 15 150/89 H 97 Room Air 04/29/23 15:17 69 04/29/23 11:20 36.5 C 61 14 160/92 H 99 Room Air 04/29/23 08:14 Room Air 04/29/23 07:24 66 04/29/23 07:15 36.6 C 69 16 156/80 H 98 Room Air all noted and reviewed including below
[2023-04-29] MEDS: hydrALAZINE HCL 25 MG TAB PO SCH (21:40)
[2023-04-30] MEDS: oxyCODONE HCL IR 5 MG TAB (IMMEDIATE RELEASE) PO PRN ×7 (00:39→23:57)
[2023-04-30] MEDS: HYDROmorphone INJ 0.5 MG/0.5 ML SYR IV PRN ×7 (01:29→23:58)
[2023-04-30] MEDS ORDERED: oxyCODONE HCL IR 5 MG TAB (IMMEDIATE RELEASE) PO STA (03:56)
[2023-04-30] MEDS: ACETAMINOPHEN 500 MG TAB PO SCH ×2 (05:48→17:31)
[2023-04-30] MEDS: HEPARIN SOD 5,000 UNIT/0.5 ML VIAL SQ SCH ×4 (05:48→21:57)
[2023-04-30 05:52] LABS: Basophils # (auto) 0.04 K/uL (0.00-0.20); Basophils % (auto) 0.8 %; Eosinophils # (auto) 0.14 K/uL (0.00-0.50); Eosinophils % (auto) 2.8 %; Hematocrit (blood only) 33.5 % (42.0-52.0); Hemoglobin 10.9 g/dl (14.0-18.0); Immature Granulocytes # (auto) 0.01 K/uL (0.01-0.20); Immature Granulocytes % (auto) 0.2 %; Lymphocytes # (auto) 1.23 K/uL (1.20-3.40); Lymphocytes % (auto) 24.7 %; Mean Corpuscular Hemoglobin 28.2 pg (25.0-34.0); Mean Corpuscular Hgb Conc 32.5 g/dL (32.0-36.0); Mean Corpuscular Volume 86.6 fL (80.0-100.0); Mean Platelet Volume 11.1 fL (9.4-12.4); Monocytes # (auto) 0.33 K/uL (0.11-0.59); Monocytes % (auto) 6.6 %; Neutrophils # (auto) 3.22 K/uL (1.40-6.50); Neutrophils % (auto) 64.9 %; Platelet Count 218 K/uL (130-400); RDW Coefficient of Variation 13.2 % (11.5-14.5); RDW Standard Deviation 41.1 fL (36.4-46.3); Red Blood Count 3.87 M/uL (4.70-6.10); White Blood Count 4.97 K/ul (4.8-10.8)
[2023-04-30 05:58] LABS: BUN Creatinine Ratio 16.2 (10-20); Calcium 8.7 mg/dl (8.6-10.3); Creatinine Clr Calc Pharmacy 30.4 ml/min; Est GFR (African American) 23.2 ml/min
[2023-04-30] MEDS: hydrALAZINE HCL 25 MG TAB PO SCH ×2 (07:34→21:56)
[2023-04-30] MEDS: amLODIPine BESYLATE 5 MG TAB PO SCH (07:35)
[2023-04-30] MEDS: AMOXICILLIN/CLAVULANATE 500 MG TAB PO SCH ×2 (07:35→21:56)
[2023-04-30] MEDS: POLYETHYLENE (MIRALAX) 17 GM PACK PO SCH (07:36)
[2023-04-30] MEDS: ADVANCED PROBIOTIC 1250 MG CAPSULE PO SCH (07:36)
[2023-04-30] MEDS: INSULIN ASPART PER UNIT CHARGE SC SCH ×4 (08:17→21:56)
[2023-04-30] MEDS: CIPROFLOXACIN 500 MG TAB PO SCH (12:07)
--- NOTE | 2023-04-30 16:51 | Hospitalist Progress Note ---
Date of Service April 30, 2023 Assessment & Plan (1) Gangrene of toe of left foot: Plan: 47-year-old male past med significant for high blood pressure, diabetes, high cholesterol as per patient and not taking medication since 2019 comes because of left big toe infection which seems gangrenous. Patient says 2 months ago the infection started left big toe with callus and progressive got worse. Gangrene of toe of left foot States callus of left big toe got infected since last 2 months and progressively got worse Not seeing doctors for long time Placed on IV Vanco and Zosyn IV fluids We will follow arterial ultrasound of lower extremities IV Dilaudid as needed N.p.o. Consult Ortho 04/27 s/p L big toe amputation 04/28 wound stable wound culture: Elzbieta Gr (+) change abx to Ceftri ff up cultures continue pain control PT/OT eval Lovenox SC for DVT prophylaxis 04/29 Wound culture: Morganella, Staph aureus MSSA, Enterococcus faecalis, Bacteroides Blood cultures: Negative Antibiotics changed to ciprofloxacin plus Augmentin 04/30 continue present abx pain still not well controlled patient reports being on chronic narcotics 2 yrs ago will increase Oxycodone to 15mg q4h prn and consult pain management Hypertensive urgency States has history of hypertension and not take any medications We will place him on IV labetalol as needed for now 04/29 Amlodipine increased to 10 mg daily Hydralazine 25 mg twice daily PRN Hydralazine 04/30 BP improving monitor HEATHER versus chronic kidney disease Creatinine of 3.8--> 3.3 bicarb drip discontinued Nephrology consult --Creatinine 3.4 Monitor closely Diabetes Currently not on medications Insulin sliding scale a1c 7.5 -- Upon discharge, will need glipizide 2.5 mg p.o. daily History of hyperlipidemia DVT prophylaxis Heparin subcutaneous every 8 hours Disposition Med/telemetry Full code Admission and Anticipated Discharge Date Admission Date: April 26, 2023 Subjective ff up for s/p L toe amputation, etc seen resting in bed, not in distress still having significant pain on the surgical site requiring Dilaudid and Oxycodone no other symptoms Review of Systems Review of Systems: all noted and negative except for above Physical Exam Physical Exam: General- oriented x 3, not in distress, speaks in sentences with no effort or accessory muscle use Eyes- anicteric Neck- no JVD Lungs- clear BS BL Heart- normal rate, regular rhythm; no murmurs Abdomen- normal bowel sounds, nondistended, soft, nontender Extremities- no pretibial edema, no calf tenderness L foot: heavy dressing in place no bleeding or discharge Neuro- alert, oriented x 3; no gross focal neurologic deficits Skin- warm & dry Results & Data Results & Data Vital Signs (Past 12 Hours) Vital Signs Temp Pulse Pulse Resp BP Pulse Ox O2 Del Method 04/30/23 16:30 37 C 77 18 136/77 98 Room Air 04/30/23 15:11 71 04/30/23 12:12 36.4 C L 88 20 113/76 98 Room Air 04/30/23 08:19 Room Air 04/30/23 07:00 36.8 C 71 18 155/81 H 97 Room Air 04/30/23 06:59 67 all noted and reviewed including below
--- NOTE | 2023-04-30 20:39 | Orthopedic Progress Note ---
Date of Service April 30, 2023 Assessment & Plan (1) Gangrene of toe of left foot: Plan: Patient seen at bedside status post day #4 Left great toe amputation (DOS: 04/26/23) secondary to gas gangrene, osteomyelitis. Surgical care obtained clear margins and source control. Cultures show multi organism infection. Awaiting pathology report. Patient is weight bearing as tolerated. Surgical shoe present to bedside. Appreciate ID consult. Will continue to follow while in house. Thank you for allowing me to participate in the care of this Patient. (2) Diabetes: Admission and Anticipated Discharge Date Admission Date: April 26, 2023 Subjective Patient seen at bedside status post day #4 Left great toe amputation (DOS: 04/26/23) secondary to gas gangrene, osteomyelitis. Patient noticed toe had turned black 2 months earlier but only recently came to [facility] ED for treatment. Today he is found resting comfortably. Dressing is alistair n, dry, and intact. Patient has no complaints. Physical Exam Constitutional: well developed, well nourished, cooperative and comfortable Eyes: normal visual adair by confrontation Neck: normal visual inspection Respiratory: normal respiratory effort Cardiovascular: Rate/Rhythm: regular rate and regular rhythm Heart Sounds: normal S1 and normal S2 Vessels: posterior tibial pulses present and dorsalis pedis pulses present Skin: + wound (Left great toe amputation sutur es intact. Skin well co-apted. ) Neurologic: moves all extremities Psychiatric: Orientation: alert and oriented x 3 Results & Data Vital Signs (Past 12 Hours) Vital Signs Temp Pulse Pulse Resp BP Pulse Ox O2 Del Method 04/30/23 20:35 36.6 C 71 16 143/75 H 98 Room Air 04/30/23 16:30 37 C 77 18 136/77 98 Room Air 04/30/23 15:11 71 04/30/23 12:12 36.4 C L 88 20 113/76 98 Room Air Diagnostic Findings [facility] [address] [place] [address] / Director: Gunner Kenny M.D. Clinical Laboratory Report Name: VARUN DARBY Acct: [id number] Status: ADM IN : 1975 [facility] [place] Date: 04/26/23 Age: 47 Sex: M Dis Date: Loc: [address]/Bed: [facility] Spec: [id number] Collected: 04/26/23 Received: 04/26/[address]: Jesse Silva, DPM, MS Copy To: Ike Avila MD Source: Toe,Left Great OV Order: Ordered: Aer/Raven Cult/Sm Comments: Comment Culture set #1 Left distal phalanx bone. Procedure Result Verified Site Gram Stain Final 04/26/23 Gram Stain Result No WBCs Seen Many Gram Positive Cocci Rare Gram Negative Bacilli Aero/Raven Cult Preliminary 04/30/23 Organism 1 Morganella morganii Quantity Many Sens Sensitivities to Follow +MixWound Plus Moderate Counts of Probable Skin Lynda Organism 2 Staphylococcus aureus Quantity Few Sens Sensitivities to Follow Organism 3 Enterococcus faecalis Quantity Moderate Sens Sensitivities to Follow Organism 4 Bacteroides fragilis Quantity Moderate Sens No Sensitivities to Follow Organism 5 Peptoniphilus asaccharolyticus Quantity Many Sens No Sensitivities to Follow M morganii S aureus E faecalis RX M.I.C. RX M.I.C. RX M.I.C. --- --------- --- --------- --- --------- Ampicillin S <=2 Amp/Sul R >16/8 Cefepime S <=2 Ceftriaxone S <=1 Ciprofloxacin S <=0.25 Clindamycin S <=0.5 Daptomycin S 1 S 1 Ertapenem S <=0.5 Erythromycin S <=0.5 Gentamicin S <=4 Gent Synergy S <=500 Levofloxacin S <=0.5 Meropenem S <=1 Oxacillin S <=0.25 Penicillin S 2 Strep Synergy S <=1000 Tetracycline S <=4 Tobramycin S <=4 Trimeth/Sulfa S <=2/38 S <=0.5/9.5 Pip/Tazo S <=16 Vancomycin S 2 S 2 Enterococcus faecalis: Positive Combo 33 Streptomycin Synergy Screen S Gentamicin Synergy Screen S S = SENSITIVE I = INTERMEDIATE R = RESISTANT Name: VARUN DARBY : 1975 PAGE 1 Printed: 04/30/232038 END OF REPORT
[2023-05-01] MEDS: oxyCODONE HCL IR 5 MG TAB (IMMEDIATE RELEASE) PO PRN ×5 (05:56→21:59)
[2023-05-01] MEDS: ACETAMINOPHEN 500 MG TAB PO SCH ×2 (05:56→18:00)
[2023-05-01] MEDS: HEPARIN SOD 5,000 UNIT/0.5 ML VIAL SQ SCH ×3 (06:04→23:33)
[2023-05-01 07:33] LABS: Basophils # (auto) 0.05 K/uL (0.00-0.20); Basophils % (auto) 0.9 %; Eosinophils % (auto) 3.6 %; Hematocrit (blood only) 29.7 % (42.0-52.0); Hemoglobin 9.6 g/dl (14.0-18.0); Immature Granulocytes # (auto) 0.01 K/uL (0.01-0.20); Immature Granulocytes % (auto) 0.2 %; Lymphocytes # (auto) 1.43 K/uL (1.20-3.40); Lymphocytes % (auto) 26.1 %; Mean Corpuscular Hgb Conc 32.3 g/dL (32.0-36.0); Mean Corpuscular Volume 86.6 fL (80.0-100.0); Mean Platelet Volume 10.5 fL (9.4-12.4); Monocytes # (auto) 0.41 K/uL (0.11-0.59); Monocytes % (auto) 7.5 %; Neutrophils # (auto) 3.38 K/uL (1.40-6.50); Neutrophils % (auto) 61.7 %; Platelet Count 212 K/uL (130-400); RDW Coefficient of Variation 13.2 % (11.5-14.5); RDW Standard Deviation 41.2 fL (36.4-46.3); Red Blood Count 3.43 M/uL (4.70-6.10); White Blood Count 5.48 K/ul (4.8-10.8)
[2023-05-01] MEDS: AMOXICILLIN/CLAVULANATE 500 MG TAB PO SCH ×2 (07:41→19:34)
[2023-05-01] MEDS: ADVANCED PROBIOTIC 1250 MG CAPSULE PO SCH (07:41)
[2023-05-01] MEDS: amLODIPine BESYLATE 5 MG TAB PO SCH (07:41)
[2023-05-01] MEDS: POLYETHYLENE (MIRALAX) 17 GM PACK PO SCH (07:42)
[2023-05-01] MEDS: hydrALAZINE HCL 25 MG TAB PO SCH ×2 (07:42→19:35)
[2023-05-01] MEDS: HYDROmorphone INJ 0.5 MG/0.5 ML SYR IV PRN (07:47)
[2023-05-01 08:19] LABS: Calcium 8.5 mg/dl (8.6-10.3); Potassium 4.9 mmol/L (3.5-5.1)
[2023-05-01 08:25] LABS: Creatinine Clr Calc Pharmacy 23.7 ml/min; Est GFR (African American) 17.2 ml/min; Est GFR (Non-African American) 14.8 ml/min
[2023-05-01] MEDS: INSULIN ASPART PER UNIT CHARGE SC SCH ×4 (08:26→23:35)
[2023-05-01] MEDS ORDERED: HYDROmorphone INJ 0.5 MG/0.5 ML SYR IV PRN (08:26)
--- NOTE | 2023-05-01 08:31 | Pain Management Consultation ---
Date of Consultation May 01, 2023 Assessment & Plan (1) Diabetic peripheral neuropathy: (2) Soft tissue infection of foot: (3) Gangrene of toe of left foot: Plan 1. Patient has somatic and neuropathic pain and thus requires a multimodal pain regimen to minimize both components. Recommend initiation of gabapentin 300 mg p.o. 3 times daily. Unfortunately due to concurrent use of ciprofloxacin and lower creatinine clearance he is unable to have Cymbalta, thus we will utilize nortriptyline 25 mg p.o. nightly. 2. Agree with ongoing utilization of oxycodone at current dosing however counseled the patient that he should minimize use of IV medications for breakthrough in preparation for discharge. 3. We discussed diabetic control as a pain strategy to minimize progression of neuropathy. 4. He may follow-up with his primary care physician for ongoing prescriptions as an outpatient. There is no need at this time for him to follow with [facility] pain management office. 5. No role for interventional pain management at this time. 6. Thank you for this consultation please call with any questions. History of Present Illness Attending Physician: Joavn Perkins MD History of Present Illness 47-year-old male with longstanding diabetes, hypertension, diabetic peripheral neuropathy left greater than right to the level just distal to the knee presented on 04/25/2023 to the [facility] emergency room with left gangrenous great toe. He reports 2-month history which had worsened over time and ultimately resulted in a left great toe amputation performed on 04/26/2023. He reports that since that time he has had his typical diabetic peripheral neuropathy burning pain but with sharp " someone is hammering a nail into the stump of my great toe" pain. He reports that he has only had mild benefit from oxycodone and IV hydromorphone. He is utilize 6 mg of IV hydromorphone and 60 mg of oxycodone in the last 24 hours. Pain ranges between 4-8 out of 10 currently 6 out of 10. He admits to some sleep disturbance as well as frustration over his pain. He reports that previous we approximately 3 years ago he was working with [facility] for prescription opiates for chronic low back pain, he became frustrated with his physician and abruptly stopped treatment with their office, he has not had prescription opiates since that time. He reports that at the time he had been utilizing gabapentin without effect for his low back pain. He denies any side effects or mental sedation with his current pain regimen simply noting that it is not as effective as he would wish. He denies any bowel or bladder incontinence, motor weakness, fever, chills, night sweats, constipation, diarrhea. Allergies Allergy/AdvReac Type Severity Reaction Status Date / Time Iodinated Contrast Media AdvReac Mild SEVERE Verified 04/26/23 02:25 NAUSEA Home Medications Medication Instructions Recorded Confirmed Type No Known Home Medications 04/26/23 04/26/23 History Pain History Pain Location Full Body Front + Back: 2 1. 2. Patient History Medical History (Updated 05/01/23 @ 16:57 by Ericka Bunn DO) Soft tissue infection of foot (~03/2023) Gangrene of toe of left foot Anemia Hypertension Diabetes HEATHER (acute kidney injury) Surgical History (Updated 05/01/23 @ 08:40 by Ericka Bunn DO) Amputated great toe of left foot Hx of facial fracture repair History of back surgery Social History Smoking Status: Current every day smoker Tobacco Type: Cigarettes Hx Alcohol Use: Yes Alcohol type: beer Hx Substance Use: No Communication Ability: Effective Beliefs That Will Affect Care: None Current Living Situation: Alone Feels Safe at Home: Yes Safety Concerns: Feels Safe At This Time Assistive Devices: None Physical Exam 2 Physical Exam: Constitutional: Well-developed, well-nourished, healthy-appearing, normal weight Psych: Awake, alert, and oriented 3 with normal affect and mood. Recent memory appears grossly intact Eyes: Pupils are equally round and reactive to light with normal size pupils, eyelids appear normal Ear, nose, mouth, and throat: Moist nasal and oral membranes, lips and tongues appear normal, no external ear abnormalities are noted Neck: The trachea is midline without deviation Respiratory: Normal respiratory effort without distress, no audible wheezes or rhonchi CV: RRR Chest: Deferred Musculoskeletal: Head is normocephalic and atraumatic, gait not observed Cervical: Lordotic curve: Normal Range of motion is normal with extension, flexion, side-bending, rotation Strength: Strength is grossly equal bilaterally with 5 out of 5 strength in all planes Lumbar: Strength: Strength is grossly equal bilaterally with 5 out of 5 strength in all planes Sensation of lower extremities: Neuropathic pain in a stocking glove distribution from the toes to just distal to the knee Left great toe amputation noted with bandage in place. Skin: No rashes, lesions, ulcers, or induration noted Neuro: No nystagmus noted, the tongue is midline, the patient is able to rotate their head bilaterally : Deferred
[2023-05-01] MEDS ORDERED: DULoxetine HCL 30 MG CAP PO SCH (09:00)
[2023-05-01] MEDS ORDERED: GABAPENTIN 300 MG CAP PO SCH (09:00)
[2023-05-01] MEDS: SODIUM CHLORIDE 0.9% 1,000 ML IV SCH ×3 (09:01→23:40)
[2023-05-01] MEDS: GABAPENTIN 300 MG CAP PO SCH ×2 (09:27→19:34)
--- NOTE | 2023-05-01 10:12 | Nephrology Progress Note ---
Date of Service May 01, 2023 Assessment & Plan Admission and Anticipated Discharge Date Admission Date: April 26, 2023 Subjective Assessment & Plan (1) HEATHER (acute kidney injury): Plan: Overall Unchainged renal insufficiency w/ unknown baseline creatinine. However he says he has been having Intermittent LE edema for last few years. not oliguric. p/w creat 3.5 on 04/26 and after being stable few days and now up to 4.4. Most likely he has diabetic nephropathy with CKD but unknown baseline at he has not had any blood work done for many years. denies nsaid use or a fall. likeliest ATN in setting of sepsis/diabetic foot +/- component of CKD ( DM, HTN, tobacco abuse, lack of access to medical care). on vanco /zosyn. s/p 04/26 L great toe amputation. No longer on Zosyn or vancomycin. Current antibiotics much less nephrotoxic Given rise in creatinine he has been restarted on IV fluid which is reasonable for 1 more day but does not appear he is severely volume depleted. More likely the rise in the creatinine is from toxic tubular ischemia/injury in the setting of infection/antibiotic. We will follow renal panel. As long as the creatinine still rising we will not discharge the patient given his prior track record of not having any access to healthcare NEPHROLOGY DISCHARGE RECS -hospital discharge visit with Dr Tyson in [facility] or [facility] (he lives in [place]) w/ BMP UACM, ACR all to be ordered by nephro RN and done about 3 days before appt -bmp at PCP f/u w/in a week of d/c (needs to est w/ PCP) -no nsaids at d/c Subjective denies Any new issues. Still has pain in the Infected leg. No SOB. Review of Systems Review of Systems: All systems reviewed & are unremarkable except as noted in Subjective Physical Exam Constitutional: well developed, well nourished and cooperative; no acute distress Eyes: EOM intact bilaterally ENMT: Ears: no external ear abnormality Nose: no external nose abnormality Mouth: + dry oral mucous membranes Neck: no nuchal rigidity Respiratory: normal respiratory effort Auscultation: + diminished lung sounds Cardiovascular: RRR, no murmur, no edema Gastrointestinal (Abdomen): Inspection/Auscultation: normal bowel sounds Percussion/Palpation: abdomen soft; abdomen nontender Musculoskeletal: Extremities: strength 5/5 throughout and + foot abnormality (bandaged stump of L great toe) Skin: no rashes, warm and dry Psychiatric: Orientation: alert and oriented x 3 Results & Data Vital Signs (Past 12 Hours) Vital Signs Temp Pulse Pulse Resp BP Pulse Ox O2 Del Method 05/01/23 07:33 36.7 C 69 18 136/77 98 Room Air 05/01/23 07:20 69 05/01/23 04:38 37.2 C 73 18 125/76 98 Room Air 05/01/23 04:00 Room Air 04/30/23 23:51 36.8 C 74 18 126/72 98 Room Air
[2023-05-01] MEDS: CIPROFLOXACIN 500 MG TAB PO SCH (10:52)
--- NOTE | 2023-05-01 15:40 | Hospitalist Progress Note ---
Date of Service May 01, 2023 Assessment & Plan (1) Gangrene of toe of left foot: Plan: (1) Gangrene of toe of left foot: Plan: 47-year-old male past med significant for high blood pressure, diabetes, high cholesterol as per patient and not taking medication since 2019 comes because of left big toe infection which seems gangrenous. Patient says 2 months ago the infection started left big toe with callus and progressive got worse. Gangrene of toe of left foot States callus of left big toe got infected since last 2 months and progressively got worse Not seeing doctors for long time Placed on IV Vanco and Zosyn IV fluids We will follow arterial ultrasound of lower extremities IV Dilaudid as needed N.p.o. Consult Ortho 04/27 s/p L big toe amputation 04/28 wound stable wound culture: Mikhail Ruff (+) change abx to Ceftri ff up cultures continue pain control PT/OT eval Lovenox SC for DVT prophylaxis 04/29 Wound culture: Morganella, Staph aureus MSSA, Enterococcus faecalis, Bacteroides Blood cultures: Negative Antibiotics changed to ciprofloxacin plus Augmentin 04/30 continue present abx pain still not well controlled patient reports being on chronic narcotics 2 yrs ago will increase Oxycodone to 15mg q4h prn and consult pain management 05/01 Pain management service consulted Started on nortriptyline and gabapentin Pain seems to be improving Continue ciprofloxacin plus Augmentin Hypertensive urgency States has history of hypertension and not take any medications We will place him on IV labetalol as needed for now 04/29 Amlodipine increased to 10 mg daily Hydralazine 25 mg twice daily PRN Hydralazine 04/30 BP improving monitor 05/01 Blood pressure improved Continue to monitor HEATHER versus chronic kidney disease Likely secondary to underlying infection Creatinine of 3.8--> 3.3 bicarb drip discontinued Nephrology consult --Creatinine again increased to 4.4 Requested nephrology follow-up evaluation Started IV NSS Monitor closely Diabetes Currently not on medications Insulin sliding scale a1c 7.5 -- Upon discharge, will need glipizide 2.5 mg p.o. daily History of hyperlipidemia DVT prophylaxis Heparin subcutaneous every 8 hours Disposition Med/telemetry Full code Admission and Anticipated Discharge Date Admission Date: April 26, 2023 Subjective Follow-up for left toe gangrene, status post amputation, etc. Seen resting in bed, comfortable, not in distress States pain seems to be more manageable today Denies fevers or chills No problems with voiding No other new symptom Review of Systems Review of Systems: all noted and negative except for above Physical Exam Physical Exam: General- oriented x 3, not in distress, speaks in sentences with no effort or accessory muscle use Eyes- anicteric Neck- no JVD Lungs- clear breath sounds bilaterally, no rales/wheezes Heart- normal rate, regular rhythm; no murmurs Abdomen- normal bowel sounds, nondistended, soft, nontender Extremities- no pretibial edema, no calf tenderness Left foot: Dressing in place, no bleeding or discharge No leg edema noted Neuro- alert, oriented x 3; no gross focal neurologic deficits Skin- warm & dry Results & Data Results & Data Vital Signs (Past 12 Hours) Vital Signs Temp Pulse Pulse Resp BP Pulse Ox O2 Del Method 05/01/23 15:24 36.7 C 79 18 149/87 H 100 Room Air 05/01/23 11:27 36.5 C 69 20 111/65 99 Room Air 05/01/23 07:33 36.7 C 69 18 136/77 98 Room Air 05/01/23 07:20 69 05/01/23 04:38 37.2 C 73 18 125/76 98 Room Air 05/01/23 04:00 Room Air all noted and reviewed including below
[2023-05-01] MEDS: NORTRIPTYLINE HCL 25 MG CAP PO SCH (19:34)
[2023-05-02] MEDS: oxyCODONE HCL IR 5 MG TAB (IMMEDIATE RELEASE) PO PRN ×5 (04:28→20:37)
[2023-05-02] MEDS: ACETAMINOPHEN 500 MG TAB PO SCH ×2 (04:29→17:30)
[2023-05-02] MEDS: HEPARIN SOD 5,000 UNIT/0.5 ML VIAL SQ SCH ×3 (06:07→20:44)
[2023-05-02 07:34] LABS: Basophils # (auto) 0.05 K/uL (0.00-0.20); Basophils % (auto) 0.7 %; Hematocrit (blood only) 32.5 % (42.0-52.0); Hemoglobin 10.5 g/dl (14.0-18.0); Immature Granulocytes # (auto) 0.02 K/uL (0.01-0.20); Immature Granulocytes % (auto) 0.3 %; Mean Corpuscular Hemoglobin 28.5 pg (25.0-34.0); Mean Corpuscular Hgb Conc 32.3 g/dL (32.0-36.0); Mean Corpuscular Volume 88.1 fL (80.0-100.0); Mean Platelet Volume 10.6 fL (9.4-12.4); Monocytes # (auto) 0.43 K/uL (0.11-0.59); Monocytes % (auto) 6.4 %; Neutrophils # (auto) 4.37 K/uL (1.40-6.50); Neutrophils % (auto) 65.6 %; Platelet Count 225 K/uL (130-400); RDW Coefficient of Variation 13.2 % (11.5-14.5); RDW Standard Deviation 42.8 fL (36.4-46.3); Red Blood Count 3.69 M/uL (4.70-6.10); White Blood Count 6.67 K/ul (4.8-10.8)
[2023-05-02] MEDS: POLYETHYLENE (MIRALAX) 17 GM PACK PO SCH (08:30)
[2023-05-02] MEDS: INSULIN ASPART PER UNIT CHARGE SC SCH ×4 (08:30→20:43)
[2023-05-02] MEDS: AMOXICILLIN/CLAVULANATE 500 MG TAB PO SCH ×2 (08:31→20:38)
[2023-05-02] MEDS: CIPROFLOXACIN 500 MG TAB PO SCH (08:31)
[2023-05-02] MEDS: hydrALAZINE HCL 25 MG TAB PO SCH ×2 (08:31→20:39)
[2023-05-02] MEDS: amLODIPine BESYLATE 5 MG TAB PO SCH (08:31)
[2023-05-02] MEDS: ADVANCED PROBIOTIC 1250 MG CAPSULE PO SCH (08:32)
[2023-05-02] MEDS: GABAPENTIN 300 MG CAP PO SCH ×2 (08:32→20:38)
[2023-05-02 08:53] LABS: Calcium 8.6 mg/dl (8.6-10.3); Potassium 5.2 mmol/L (3.5-5.1)
[2023-05-02 08:59] LABS: BUN Creatinine Ratio 19.3 (10-20); Creatinine Clr Calc Pharmacy 23.7 ml/min; Est GFR (African American) 17.1 ml/min; Est GFR (Non-African American) 14.8 ml/min
--- NOTE | 2023-05-02 09:36 | Nephrology Progress Note ---
Date of Service May 02, 2023 Assessment & Plan Admission and Anticipated Discharge Date Admission Date: April 26, 2023 Subjective Subjective Assessment & Plan (1) HEATHER (acute kidney injury): Plan: Overall Unchainged renal insufficiency w/ unknown baseline creatinine. However he says he has been having Intermittent LE edema for last few years. not oliguric. p/w creat 3.5 on 04/26 and after being stable few days and now up to 4.4. Most likely he has diabetic nephropathy with CKD but unknown baseline at he has not had any blood work done for many years. denies nsaid use or a fall. likeliest ATN in setting of sepsis/diabetic foot +/- component of CKD ( DM, HTN, tobacco abuse, lack of access to medical care). on vanco /zosyn. s/p 04/26 L great toe amputation. No longer on Zosyn or vancomycin. Current antibiotics much less nephrotoxic He does not appear he is severely volume depleted. Can stop iv fluid More likely the rise in the creatinine is from toxic tubular ischemia/injury in the setting of infection/antibiotic. We will follow renal panel. As long as the creatinine still rising we will not discharge the patient given his prior track record of not having any access to healthcare Borderline high K --Will follow.. NO meds needed. he really wants to go home today But I dont think he is ready. After explaining he was fine with it NEPHROLOGY DISCHARGE RECS -hospital discharge visit with Dr Tyson in [facility] or [facility] (he lives in [place]) w/ BMP UACM, ACR all to be ordered by nephro RN and done about 3 days before appt -bmp at PCP f/u w/in a week of d/c (needs to est w/ PCP) -no nsaids at d/c Subjective Denies Any new issues. Still has pain in the Infected leg. Pain Management saw patient. No SOB. Review of Systems Review of Systems: All systems reviewed & are unremarkable except as noted in Subjective Physical Exam Constitutional: well developed, well nourished and cooperative; no acute distress Eyes: EOM intact bilaterally ENMT: Ears: no external ear abnormality Nose: no external nose abnormality Mouth: + dry oral mucous membranes Neck: no nuchal rigidity Respiratory: normal respiratory effort Auscultation: + diminished lung sounds Cardiovascular: RRR, no murmur, no edema Gastrointestinal (Abdomen): Inspection/Auscultation: normal bowel sounds Percussion/Palpation: abdomen soft; abdomen nontender Musculoskeletal: Extremities: strength 5/5 throughout and + foot abnormality (bandaged stump of L great toe) Skin: no rashes, warm and dry Psychiatric: Orientation: alert and oriented x 3 Results & Data Vital Signs (Past 12 Hours) Vital Signs Temp Pulse Pulse Resp BP Pulse Ox O2 Del Method 05/02/23 07:52 36.9 C 70 20 152/74 H 96 Room Air 05/02/23 05:58 70 05/02/23 03:39 36.6 C 69 20 149/75 H 99 Room Air 05/02/23 00:59 Room Air 05/01/23 23:31 37.0 C 78 20 149/71 H 100 Room Air 05/01/23 22:08 77
--- NOTE | 2023-05-02 17:14 | Hospitalist Progress Note ---
Date of Service May 02, 2023 Assessment & Plan (1) Gangrene of toe of left foot: Plan: (1) Gangrene of toe of left foot: Plan: 47-year-old male past med significant for high blood pressure, diabetes, high cholesterol as per patient and not taking medication since 2019 comes because of left big toe infection which seems gangrenous. Patient says 2 months ago the infection started left big toe with callus and progressive got worse. Gangrene of toe of left foot States callus of left big toe got infected since last 2 months and progressively got worse Not seeing doctors for long time 04/27 s/p L big toe amputation by Dr. Jesse Silva wound stable wound culture: Morganella, MSSA, Enterococcus faecalis, Bacteroides,Peptoniphilus ID consulted IV antibiotics changed to ciprofloxacin plus Augmentin, day #5 Pain control is challenging, patient has a history of chronic pain syndrome and was on narcotics in the past, last used about 2 years ago Oxycodone gradually increased to 15mg q4h prn and pain management consulted [place] to have somatic and neuropathic pain as well Started on nortriptyline and gabapentin-renally dose Plan for discharge: Ciprofloxacin plus Augmentin x5 more days Oxycodone 15 mg every 4 hours as needed, nortriptyline, gabapentin Needs to follow-up with Dr. Jesse Silva personal service representative in 1 week Hypertensive urgency States has history of hypertension and not take any medications Started on amlodipine and hydralazine Monitor BP HEATHER VERSUS CHRONIC KIDNEY DISEASE Likely secondary to underlying infection, IV antibiotics Creatinine of 3.8 Nephrology is consulted, bicarbonate started Creatinine improved to 3.4 Creatinine again increased to 4.4, today still at 4.4 Requested nephrology follow-up evaluation Continue daily monitoring of creatinine DIABETES Currently not on medications Insulin sliding scale a1c 7.5 BSG on this admission ranges from 90 - 160 Has not required insulin for coverage while admitted Given decreased renal function, will hold off on oral diabetic medications Diabetic diet for now Follow-up with PCP, once kidney function recovers, may be started with glipizide History of hyperlipidemia DVT prophylaxis Heparin subcutaneous every 8 hours Disposition Anticipate discharge to home when cleared by Sales Product Manager Admission and Anticipated Discharge Date Admission Date: April 26, 2023 Subjective Subjective Assessment & Plan (1) HEATHER (acute kidney injury): Plan: Overall Unchainged renal insufficiency w/ unknown baseline creatinine. However he says he has been having Intermittent LE edema for last few years. not oliguric. p/w creat 3.5 on 04/26 and after being stable few days and now up to 4.4. Most likely he has diabetic nephropathy with CKD but unknown baseline at he has not had any blood work done for many years. denies nsaid use or a fall. likeliest ATN in setting of sepsis/diabetic foot +/- component of CKD ( DM, HTN, tobacco abuse, lack of access to medical care). on vanco /zosyn. s/p 04/26 L great toe amputation. No longer on Zosyn or vancomycin. Current antibiotics much less nephrotoxic He does not appear he is severely volume depleted. Can stop iv fluid More likely the rise in the creatinine is from toxic tubular ischemia/injury in the setting of infection/antibiotic. We will follow renal panel. As long as the creatinine still rising we will not discharge the patient given his prior track record of not having any access to healthcare Borderline high K --Will follow.. NO meds needed. he really wants to go home today But I dont think he is ready. After explaining he was fine with it NEPHROLOGY DISCHARGE RECS -hospital discharge visit with Dr Tyson in [facility] or [facility] (he lives in [place]) w/ BMP UACM, ACR all to be ordered by nephro RN and done about 3 days before appt -bmp at PCP f/u w/in a week of d/c (needs to est w/ PCP) -no nsaids at d/c Subjective Denies Any new issues. Still has pain in the Infected leg. Pain Management saw patient. No SOB. Review of Systems Review of Systems: All systems reviewed & are unremarkable except as noted in Subjective Physical Exam Constitutional: well developed, well nourished and cooperative; no acute distress Eyes: EOM intact bilaterally ENMT: Ears: no external ear abnormality Nose: no external nose abnormality Mouth: + dry oral mucous membranes Neck: no nuchal rigidity Respiratory: normal respiratory effort Auscultation: + diminished lung sounds Cardiovascular: RRR, no murmur, no edema Gastrointestinal (Abdomen): Inspection/Auscultation: normal bowel sounds Percussion/Palpation: abdomen soft; abdomen nontender Musculoskeletal: Extremities: strength 5/5 throughout and + foot abnormality (bandaged stump of L great toe) Skin: no rashes, warm and dry Psychiatric: Orientation: alert and oriented x 3 Review of Systems Review of Systems: all noted and negative except for above Physical Exam Physical Exam: General- oriented x 3, not in distress, speaks in sentences with no effort or accessory muscle use Eyes- anicteric Neck- no JVD Lungs- clear breath sounds bilaterally, no rales/wheezes Heart- normal rate, regular rhythm; no murmurs Abdomen- normal bowel sounds, nondistended, soft, nontender Extremities- no pretibial edema, no calf tenderness Left foot: Bandage in place, no bleeding or discharge next Neuro- alert, oriented x 3; no gross focal neurologic deficits Skin- warm & dry Results & Data Results & Data Vital Signs (Past 12 Hours) Vital Signs Temp Pulse Pulse Resp BP Pulse Ox O2 Del Method 05/02/23 15:16 36.4 C L 84 20 159/83 H 100 Room Air 05/02/23 14:18 86 05/02/23 11:43 36.9 C 82 20 138/73 98 Room Air 05/02/23 07:52 36.9 C 70 20 152/74 H 96 Room Air 05/02/23 05:58 70 all noted and reviewed including below
[2023-05-02] MEDS: NORTRIPTYLINE HCL 25 MG CAP PO SCH (20:39)
[2023-05-03] MEDS ORDERED: NORTRIPTYLINE HCL 25 MG CAP PO SCH
[2023-05-03] MEDS ORDERED: CIPROFLOXACIN 500 MG TAB PO SCH
[2023-05-03] MEDS ORDERED: GABAPENTIN 300 MG CAP PO SCH
[2023-05-03] MEDS ORDERED: AMOXICILLIN/CLAVULANATE 500 MG TAB PO SCH
[2023-05-03] MEDS ORDERED: amLODIPine BESYLATE 5 MG TAB PO SCH
[2023-05-03] MEDS ORDERED: hydrALAZINE HCL 25 MG TAB PO SCH
[2023-05-03] MEDS: oxyCODONE HCL IR 5 MG TAB (IMMEDIATE RELEASE) PO PRN ×4 (00:44→13:33)
[2023-05-03] MEDS: ACETAMINOPHEN 500 MG TAB PO SCH (05:35)
[2023-05-03] MEDS: HEPARIN SOD 5,000 UNIT/0.5 ML VIAL SQ SCH (05:36)
[2023-05-03 08:13] LABS: Calcium 8.6 mg/dl (8.6-10.3); Creatinine Clr Calc Pharmacy 23.3 ml/min; Est GFR (African American) 16.8 ml/min; Est GFR (Non-African American) 14.5 ml/min
[2023-05-03] MEDS: GABAPENTIN 300 MG CAP PO SCH (08:59)
[2023-05-03] MEDS: hydrALAZINE HCL 25 MG TAB PO SCH (08:59)
[2023-05-03] MEDS: AMOXICILLIN/CLAVULANATE 500 MG TAB PO SCH (08:59)
[2023-05-03] MEDS: amLODIPine BESYLATE 5 MG TAB PO SCH (08:59)
[2023-05-03] MEDS: ADVANCED PROBIOTIC 1250 MG CAPSULE PO SCH (08:59)
--- NOTE | 2023-05-03 08:59 | Hospitalist Progress Note ---
Date of Service May 03, 2023 Assessment & Plan (1) Gangrene of toe of left foot: Plan: (1) Gangrene of toe of left foot: Plan: 47-year-old male past med significant for high blood pressure, diabetes, high cholesterol as per patient and not taking medication since 2019 comes because of left big toe infection which seems gangrenous. Patient says 2 months ago the infection started left big toe with callus and progressive got worse. Gangrene of toe of left foot States callus of left big toe got infected since last 2 months and progressively got worse Not seeing doctors for long time 04/27 s/p L big toe amputation by Dr. Jesse Silva wound stable wound culture: Morganella, MSSA, Enterococcus faecalis, Bacteroides,Peptoniphilus ID consulted IV antibiotics changed to ciprofloxacin plus Augmentin, continue for 5 more days Pain control is challenging, patient has a history of chronic pain syndrome and was on narcotics in the past, last used about 2 years ago Oxycodone gradually increased to 15mg q4h prn and pain management consulted [place] to have somatic and neuropathic pain as well Started on nortriptyline and gabapentin-renally dose Plan for discharge: Ciprofloxacin plus Augmentin x5 more days Oxycodone 15 mg prn, nortriptyline, gabapentin Needs to follow-up with Dr. Jesse Silva instructor dramatic arts in 1 week Hypertensive urgency States has history of hypertension and not take any medications Started on amlodipine and hydralazine Monitor BP HEATHER VERSUS CHRONIC KIDNEY DISEASE Likely secondary to underlying infection, IV antibiotics Creatinine of 3.8 Nephrology consulted and following closely Cr up at 4.5 Pt is making urine Discussed in detail w/ nephrology (as pt wants to be discharged home today) -hospital discharge visit with Dr Tyson in [facility] or [facility] (he lives in [place]) w/ BMP UACM, ACR all to be ordered by nephro RN and done about 3 days before appt -bmp at PCP f/u w/in a week of d/c (needs to est w/ PCP) -no nsaids at d/c DIABETES Currently not on medications Insulin sliding scale a1c 7.5 BSG on this admission ranges from 90 - 160 Has not required insulin for coverage while admitted Given decreased renal function, will hold off on oral diabetic medications Diabetic diet for now Follow-up with PCP, once kidney function recovers, may be started with glipizide History of hyperlipidemia Disposition plan to DC home Admission and Anticipated Discharge Date Admission Date: April 26, 2023 Subjective Follow-up for left toe gangrene, status post amputation, etc. Seen resting in bed, comfortable, not in distress Denies fevers or chills No problems with voiding No other new symptoms Discussed with the pt and nephrology - ok to discharge. Pt will followup with PCP and nephrology as outpt. He will need bloodwork and pt is in agreement to follow up with health care providers. Review of Systems Review of Systems: All systems reviewed & are unremarkable except as noted in Subjective Physical Exam Physical Exam: General- oriented x 3, not in distress, speaks in sentences with no effort or accessory muscle use Eyes- anicteric Neck- no JVD Lungs- clear breath sounds bilaterally, no rales/wheezes Heart- normal rate, regular rhythm; no murmurs Abdomen- normal bowel sounds, nondistended, soft, nontender Extremities- no pretibial edema, no calf tenderness Left foot: Dressings in place, no bleeding or discharge next Neuro- alert, oriented x 3; no gross focal neurologic deficits Skin- warm & dry Results & Data Results & Data Vital Signs (Past 12 Hours) Vital Signs Temp Pulse Pulse Resp BP Pulse Ox O2 Del Method 05/03/23 07:49 36.6 C 79 18 142/74 H 99 Room Air 05/03/23 04:37 36.6 C 76 20 145/76 H 96 Room Air 05/03/23 02:45 Room Air 05/02/23 23:56 36.7 C 81 20 153/77 H 98 Room Air 05/02/23 22:40 89 05/02/23 21:59 80 Laboratory Results 05/03/23 05/03/23 05/02/23 Range/Units 08:19 06:59 20:22 Sodium 137 (136-145) mmol/L Potassium 5.0 (3.5-5.1) mmol/L Chloride 109 H (98-107) mmol/L Carbon Dioxide 19 L (21-32) mmol/L Anion Gap 9 (3-11) BUN 95 H (6-23) mg/dl Creatinine 4.52 H* (0.6-1.4) mg/dl Est Cr Clr Drug Dosing 23.3 ml/min Est GFR ( Amer) 16.8 ml/min Est GFR (Non-Af Amer) 14.5 ml/min BUN/Creatinine Ratio 21.0 H (10-20) Glucose 103 H (70-99(Fasting)) mg/dl POC Glucose 121 H 116 H (70-99) mg/dl Calcium 8.6 (8.6-10.3) mg/dl 05/02/23 05/02/23 05/02/23 Range/Units 17:09 12:04 07:12 Sodium (136-145) mmol/L Potassium (3.5-5.1) mmol/L Chloride (98-107) mmol/L Carbon Dioxide (21-32) mmol/L Anion Gap (3-11) BUN 86 H (6-23) mg/dl Creatinine 4.45 H (0.6-1.4) mg/dl Est Cr Clr Drug Dosing 23.7 ml/min Est GFR ( Amer) 17.1 ml/min Est GFR (Non-Af Amer) 14.8 ml/min BUN/Creatinine Ratio 19.3 (10-20) Glucose 116 H (70-99(Fasting)) mg/dl POC Glucose 115 H 108 H (70-99) mg/dl Calcium (8.6-10.3) mg/dl Medications Administered Current Inpatient Medications Acetaminophen (Acetaminophen 500 Mg Tab) 1,000 mg PO Q12@0600,1800 ROBERTO CARLOS Stop: 05/27/23 14:59 Last Admin: 05/03/23 05:35 Dose: 1,000 mg Amlodipine Besylate (Amlodipine Besylate 5 Mg Tab) 10 mg PO QAM ROBERTO CARLOS Stop: 05/29/23 08:59 Last Admin: 05/02/23 08:31 Dose: 10 mg Amoxicillin/Clavulanate Potassium (Amoxicillin/Clavulanate 500 Mg Tab) 1 tab PO BID ROBERTO CARLOS Stop: 05/06/23 11:14 Last Admin: 05/02/23 20:38 Dose: 1 tab Ciprofloxacin (Ciprofloxacin 500 Mg Tab) 500 mg PO Q24H ROBERTO CARLOS Stop: 05/06/23 11:14 Last Admin: 05/02/23 08:31 Dose: 500 mg Dextrose (Dextrose 50% 50 Ml Syringe) 25 - 50 ml IV UD PRN; Protocol PRN Reason: Hypoglycemia Protocol Stop: 05/26/23 03:51 Gabapentin (Gabapentin 300 Mg Cap) 300 mg PO BID ROBERTO CARLOS Stop: 05/31/23 08:59 Last Admin: 05/02/23 20:38 Dose: 300 mg Glucagon (Glucagon For Inj 1 Mg Vial) 1 mg SQ UD PRN; Protocol PRN Reason: Hypoglycemia Protocol Stop: 05/26/23 03:51 Glucose (Glucose 10 Tab/Tube) 4 - 8 tab PO UD PRN; Protocol PRN Reason: Hypoglycemia Treatment Stop: 05/26/23 03:51 Glucose (Glucose 40% Gel 15 Gm Tube) 15 - 30 gm PO UD PRN; Protocol PRN Reason: Hypoglycemia Protocol Stop: 05/26/23 03:51 Heparin Sodium (Porcine) (Heparin Sod 5,000 Unit/0.5 Ml Vial) 5,000 units SQ Q8 ROBERTO CARLOS Stop: 05/28/23 21:59 Last Admin: 05/03/23 05:36 Dose: Not Given Hydralazine HCl (Hydralazine Hcl 20 Mg/Ml Vial) 5 mg IV Q6H PRN PRN Reason: systolic bp > 160 Stop: 05/28/23 17:44 Hydralazine HCl (Hydralazine Hcl 25 Mg Tab) 25 mg PO BID [facility] Stop: 05/29/23 20:59 Last Admin: 05/02/23 20:39 Dose: 25 mg Hydromorphone HCl (Hydromorphone Inj 0.5 Mg/0.5 Ml Syr) 1 mg IV Q8H PRN PRN Reason: Mod-Sev Pain (Scale 4-10) Stop: 05/11/23 11:23 Insulin Aspart (Insulin Aspart Per Unit Charge) 0 units SC ACHS ROBERTO CARLOS Stop: 05/26/23 05:59 Last Admin: 05/02/23 20:43 Dose: Not Given Labetalol HCl (Labetalol Hcl Iv 5 Mg/Ml 20ml) 10 mg IV Q4H PRN PRN Reason: Hypertension Stop: 05/26/23 03:51 Lactobacillus Acidophilus (Advanced Probiotic 1250 Mg Capsule) 2 cap PO DAILY [facility] Stop: 05/28/23 17:44 Last Admin: 05/02/23 08:32 Dose: 2 cap Miscellaneous (Carbohydrates For Hypoglycemia ) 15 - 30 gm PO UD PRN PRN Reason: Hypoglycemia Protocol Stop: 05/26/23 03:51 Nitroglycerin (Nitroglycerin Sl 0.4 Mg/Tab Tab) 0.4 mg SL Q5M PRN PRN Reason: Chest Pain Stop: 05/26/23 03:51 Nortriptyline HCl (Nortriptyline Hcl 25 Mg Cap) 25 mg PO HS ROBERTO CARLOS Stop: 05/31/23 20:59 Last Admin: 05/02/23 20:39 Dose: 25 mg Oxycodone HCl (Oxycodone Hcl Ir 5 Mg Tab (Immediate Release)) 15 mg PO Q4H PRN PRN Reason: moderate to severe pain Stop: 05/14/23 16:41 Last Admin: 05/03/23 05:35 Dose: 15 mg Polyethylene Glycol (Polyethylene (Miralax) 17 Gm Pack) 17 gm PO DAILY PRN PRN Reason: Constipation Stop: 05/26/23 03:51 Last Admin: 04/29/23 20:27 Dose: 17 gm Polyethylene Glycol (Polyethylene (Miralax) 17 Gm Pack) 17 gm PO DAILY ROBERTO CARLOS Stop: 05/28/23 10:29 Last Admin: 05/02/23 08:30 Dose: Not Given
[2023-05-03] MEDS: POLYETHYLENE (MIRALAX) 17 GM PACK PO SCH (09:00)
[2023-05-03] MEDS: INSULIN ASPART PER UNIT CHARGE SC SCH ×2 (09:01→12:34)
--- NOTE | 2023-05-03 09:52 | Nephrology Progress Note ---
Date of Service May 03, 2023 Assessment & Plan Admission and Anticipated Discharge Date Admission Date: April 26, 2023 Subjective Assessment & Plan (1) HEATHER (acute kidney injury): Plan: Overall Unchanged renal insufficiency w/ unknown baseline creatinine. However he says he has been having Intermittent LE edema for last few years. not oliguric. p/w creat 3.5 on 04/26 and after being stable few days and now up to 4.5. Most likely he has diabetic nephropathy with CKD ( given h/o Severe edema before) but unknown baseline at he has not had any blood work done for many years. denies nsaid use or a fall. likeliest ATN in setting of sepsis/diabetic foot + major component of CKD ( DM, HTN, tobacco abuse, lack of access to medical care). on vanco /zosyn. s/p 04/26 L great toe amputation. No longer on Zosyn or vancomycin. Current antibiotics much less nephrotoxic More likely the Acute rise in the creatinine is from toxic tubular ischemia/injury in the setting of infection/antibiotic. We will follow renal panel. Creat has been about 4.4 now for 3 days. No e/o fluid overload and no electrolytes issues. he really wants to go home and can be discharged from renal standpoint as there is no acute intervention for the kidney part. However we still need to have good pain control and Abx arrangements need to be made. defer to primary team for Discharge planning. NEPHROLOGY DISCHARGE RECS -hospital discharge visit with Dr Tyson in [facility] or [facility] (he lives in [place]) w/ BMP UACM, ACR all to be ordered by nephro RN and done about 3 days before appt -bmp at PCP f/u w/in a week of d/c (needs to est w/ PCP) -no nsaids at d/c Subjective Denies Any new issues. Still has pain in the Infected leg. Pain Management saw patient. No SOB. Review of Systems Review of Systems: All systems reviewed & are unremarkable except as noted in Subjective Physical Exam Constitutional: well developed, well nourished and cooperative; no acute distress Eyes: EOM intact bilaterally ENMT: Ears: no external ear abnormality Nose: no external nose abnormality Mouth: + dry oral mucous membranes Neck: no nuchal rigidity Respiratory: normal respiratory effort Auscultation: + diminished lung sounds Cardiovascular: RRR, no murmur, no edema Gastrointestinal (Abdomen): Inspection/Auscultation: normal bowel sounds Percussion/Palpation: abdomen soft; abdomen nontender Musculoskeletal: Extremities: strength 5/5 throughout and + foot abnormality (bandaged stump of L great toe) Skin: no rashes, warm and dry Psychiatric: Orientation: alert and oriented x 3 Results & Data Vital Signs (Past 12 Hours) Vital Signs Temp Pulse Pulse Resp BP Pulse Ox O2 Del Method 05/03/23 09:42 73 05/03/23 07:49 36.6 C 79 18 142/74 H 99 Room Air 05/03/23 04:37 36.6 C 76 20 145/76 H 96 Room Air 05/03/23 02:45 Room Air 05/02/23 23:56 36.7 C 81 20 153/77 H 98 Room Air 05/02/23 22:40 89 05/02/23 21:59 80
[2023-05-03] MEDS: CIPROFLOXACIN 500 MG TAB PO SCH (12:34)
--- NOTE | 2023-05-03 12:54 | Discharge Summary ---
Date of Service May 03, 2023 Admission HPI Per Admitting Provider 47-year-old male past med history significant for high blood pressure, diabetes, high cholesterol as per patient and not taking medication since 2019 comes because of left big toe infection which seems gangrenous. Patient says 2 months ago the infection started in left big toe with callus and progressive got worse. Is in a lot of pain. But he states he deals with lot of pain from his back pain and his neuropathy is in his lower extremity. Patient states he used to take lot of pain medications before for his back pain and used to be on a lot of pills but he stopped going to doctors from 2019 and stopped taking all the medications. Denies any fevers. Not able to ambulate because of pain for last few days. Denies any headache. Vision is okay. No runny nose or sore throat. No difficulty swallowing. No nausea or vomiting. No chest pain or shortness of breath. No abdominal pain. Normal bowel and bladder movements. Denies any bloody stools or hematuria. Past med history. As mentioned above Past surgical history. Facial reconstruction surgery, dental surgery and back surgery Social history. Smokes 1 pack a day for for about 30 years. Stopped drinking alcohol 2 years ago. Family history. Mother had diabetes. Paternal grandfather heart disease and colon cancer. Brother had esophageal cancer Admission Exam Per Admitting Provider General- Not in distress Head- atraumatic Eyes- PERRL. ENT- oropharynx clear Neck- supple, no JVD. Lungs- clear to auscultation no wheezing or crackles. Heart- regular rhythm; no murmur, no gallop. Abdomen- normal bowel sounds, soft, nontender, no distension. Extremities- Left Big toe gangrenous. Neuro- alert, oriented x 3; PERRL, no facial palsy; no dysarthria; moves extremities. Principal Diagnosis Gangrene of toe of left foot s/p amputation HEATHER Discharge Exam General- oriented x 3, not in distress, speaks in sentences with no effort or accessory muscle use Eyes- anicteric Neck- no JVD Lungs- clear breath sounds bilaterally, no rales/wheezes Heart- normal rate, regular rhythm; no murmurs Abdomen- normal bowel sounds, nondistended, soft, nontender Extremities- no pretibial edema, no calf tenderness Left foot: Dressings in place, no bleeding or discharge next Neuro- alert, oriented x 3; no gross focal neurologic deficits Skin- warm & dry Discharge Data Allergies Allergy/AdvReac Type Severity Reaction Status Date / Time Iodinated Contrast Media AdvReac Mild SEVERE Verified 04/26/23 02:25 NAUSEA Consultations 04/26/23 00:02 ED Decision to Admit Stat 04/26/23 08:00 Consult Nephrology Routine Consult Orthopedic Surgery Routine 04/26/23 08:59 Consult Podiatry Routine 04/26/23 09:01 Consult Infectious Diseases Routine 04/30/23 16:38 Consult Pain Management Routine Procedures Performed Operation Date: 04/26/23 12:00 Actual Procedures p Left Great Toe Amputation(Left) - Jesse Silva, DANIELLE, MS Ordered Studies 04/26/23 03:52 US doppler leg [US arterial duplex LE BI] Urgent FINDINGS: Right: Diffuse atherosclerotic plaque limits the study. No elevated peak systolic velocities to suggest high-grade stenosis. No arterial occlusion. Mostly triphasic waveforms throughout. LEFT: Diffuse atherosclerotic plaque limits the study. Elevated peak systolic velocities within the peroneal artery measuring up to 226 cm/s. Additional elevated peak systolic velocities in the posterior tibial artery measure up to 338 cm/s and within the proximal peroneal artery measure up to 220 cm/s. Elevated peak systolic velocities in the mid anterior tibial artery measure up to 466 cm/s. Monophasic waveforms within the left lower leg with areas of spectral broadening. Blunted waveforms are seen most prominently within the mid anterior tibial artery. IMPRESSION: 1. No arterial occlusion identified. 2. Diffuse atherosclerosis with elevated peak systolic velocities and monophasic waveforms within the left lower leg compatible with multifocal areas of high- grade stenoses. 3. Mostly triphasic waveforms throughout the right lower extremity. 04/27/23 09:54 US Kidney Bladder [US renal/blad retro comp] Routine FINDINGS: Right kidney: 11.7 cm. No hydronephrosis. Normal corticomedullary differentiation and cortical thickness. Left kidney: 11.4 cm. No hydronephrosis. Normal corticomedullary differentiation and cortical thickness. Bladder: No bladder wall thickening. The bilateral ureteral jets were identified. IMPRESSION: Normal renal ultrasound. Hospital Course (1) Gangrene of toe of left foot: (1) Gangrene of toe of left foot: Plan: 47-year-old male past med significant for high blood pressure, diabetes, high cholesterol as per patient and not taking medication since 2019 comes because of left big toe infection which seems gangrenous. Patient says 2 months ago the infection started left big toe with callus and progressive got worse. Gangrene of toe of left foot States callus of left big toe got infected since last 2 months and progressively got worse Not seeing doctors for long time 04/27 s/p L big toe amputation by Dr. Jesse Silva wound stable wound culture: Morganella, MSSA, Enterococcus faecalis, Bacteroides, Peptoniphilus ID consulted IV antibiotics changed to ciprofloxacin plus Augmentin, continue for 5 more days Pain control is challenging, patient has a history of chronic pain syndrome and was on narcotics in the past, last used about 2 years ago Oxycodone gradually increased to 15mg q4h prn and pain management consulted Lyme to have somatic and neuropathic pain as well Started on nortriptyline and gabapentin-renally dose Plan for discharge: Ciprofloxacin plus Augmentin x5 more days Oxycodone 15 mg prn, nortriptyline, gabapentin Needs to follow-up with Dr. Jesse Silva home service demonstrator in 1 week Hypertensive urgency States has history of hypertension and not take any medications Started on amlodipine and hydralazine Monitor BP HEATHER VERSUS CHRONIC KIDNEY DISEASE Likely secondary to underlying infection, IV antibiotics Creatinine of 3.8 Nephrology consulted and following closely Cr up at 4.5 Pt is making urine Discussed in detail w/ nephrology (as pt wants to be discharged home today) -hospital discharge visit with Dr Tyson [facility] [place] lives in [place]) w/ BMP UACM, ACR all to be ordered by nephro RN and done about 3 days before appt -bmp at PCP f/u w/in a week of d/c (needs to est w/ PCP) -no nsaids at d/c DIABETES Currently not on medications Insulin sliding scale a1c 7.5 BSG on this admission ranges from 90 - 160 Has not required insulin for coverage while admitted Given decreased renal function, will hold off on oral diabetic medications Diabetic diet for now Follow-up with PCP, once kidney function recovers, may be started with glipizide History of hyperlipidemia Disposition plan to [place] home Total Time Total Time Spent Total Time Spent (In Minutes): 40 Discharge Plan Discharge Items Patient Disposition: Home - Self-Care Reason For Visit: TOE INFECTION, HEATHER, HYPERTENSIVE URGENCY Discharge Diagnosis: Gangrene of toe of left foot s/p amputation HEATHER Activity: Per Instructions section Non-emergency contact: Primary Care Provider and Marketing Communications Specialist Call non-emergency contact if: you have any medication questions and your symptoms worsen Follow-up/Referrals: PCP,NO [Primary Care Provider] - Diet: Carb Consistent or DM2, Heart Healthy and Low Potassium (2gm) Addtl Attending Provider Instructions: Follow up with primary care physician. The appointment was scheduled for you for May 11 at 11:20 AM , with Dr. Jimenez. You will also need to follow up with security investigator (kidney doctor) and have a blood work done. You will be contacted about this appointment. You will also need to follow up with Dr. Silva (home service demonstrator) in 1 week. Finish antibiotics as prescribed (ciprofloxacin and augmentin). Your blood pressure has been elevated and you were started on blood pressure medications - amlodipine and hydralazine. Take them as prescribed. Monitor your blood pressure and follow up closely with primary care doctor. For pain, you were started on gabapentin, nortriptyline, and oxycodone as needed. Take them as prescribed and discuss further with your primary care doctor. You may need a referral to pain management clinic. Do NOT take any NSAIDs for pain such as Aleve, Mortrin, Ibuprofen etc. Pending Studies at Discharge: No Stand-Alone Forms: [email or web address], Smoking Cessation Medications and DC Order Prescriptions: New amoxicillin-pot clavulanate 500-125 mg Tablet 1 tab PO BID 5 Days Qty: 10 0RF ciprofloxacin HCl 500 mg Tablet 500 mg PO Q24H 5 Days Qty: 5 0RF amlodipine 10 mg tablet 10 mg PO DAILY Qty: 30 0RF hydralazine 25 mg Tablet 25 mg PO BID 20 Days Qty: 40 0RF gabapentin 300 mg Capsule 300 mg PO BID 20 Days Qty: 40 0RF nortriptyline 25 mg Capsule 25 mg PO HS 30 Days Qty: 30 0RF Advanced Probiotic 625 mg (10 billion cell) Capsule 2 cap PO DAILY Qty: 7 0RF oxycodone 15 mg tablet 15 mg PO BID PRN (Reason: pain) Qty: 10 0RF Discharge Orders: Discharge Order (Routine); Ordered 05/03/23 Ordered By: Roscoe Hathaway/Other Patient Handouts: Managing Type 2 Diabetes, Diabetes: Meal Planning, Special Foot Care for Diabetes Admission Data Admit Date/Time: 04/26/23 01:32 Attending Provider: Roscoe Olguin Admit Provider: Ike Avila Primary Care Provider: PCP,NO Other Providers: David Montiel; Ike Avila; Michael Angela; Bruno Baltazar; Lopez Coburn; Janette Peter; Michael Izquierdo; Selena Feliz; Rigo Alvarez; Otis Ribeiro; Stevo Lin; Pelon Blue; Otis Rm; Jeffy Vargas; Anibal Phan; Samy Neville; Alexsander Salas; Selena Garcia; Randy Hung; Devin Cruz; Evonne Wilson; Jesse Montgomery; Ricky Ricks; Rocio James; Amanuel Friedman; Elissa Gutierrez; Braulio Alfaro; Jesse Silva; Talib Lam; Bharat Dunaway; Danie Mccallum I.; Juan Galaviz II; Velma Paz; Stevo Aguirre; Gulshan Daniels; Savannah May; Devin Pierre; Ericka Bunn; Adalid Pineda; Geneva Tillman; Jasper Wing; Jovan Perkins
== END 2023-05-03 15:55 | disposition home or self-care (01) | DRG 255 ==
LOC: ED 22:28 → EDINP 04-26 01:32 → SUATTDRO 04-26 01:32 → EDINP 04-26 15:12 → PACUINP 04-26 18:18 → 2N 04-26 18:59